=== PATIENT | male | born 1965 | race Caucasian/White ===

== ENCOUNTER 2017-11-26 12:11 | Emergency (ER) | payer OTHER ==
[~2017-11-26] VITALS: Ht 185.4 cm; Wt 81.6 kg
[2017-11-26 12:35] LABS: ABSOLUTE BASOPHIL COUNT 0.1 /CUMM (0.0-0.2); ABSOLUTE EOSINOPHIL COUNT 0 /CUMM (0.0-0.7); ABSOLUTE GRANULOCYTE CT 4.3 /CUMM (1.4-6.5); ABSOLUTE LYMPH COUNT 1.5 /CUMM (1.2-3.4); ABSOLUTE MONOCYTE COUNT 0.5 /CUMM (0.10-0.60); BASOPHIL % 0.9 % (0.0-2.0); EOSINOPHIL % 0.4 % (0-5); GRANULOCYTE % 67.3 % (42.2-75.2); MEAN CORPUSCULAR HGB 30.4 PG (27.0-31.0); MEAN CORPUSCULAR HGB CONC 33.8 G/DL (33.0-37.0); MEAN CORPUSCULAR VOLUME 89.9 FL (80.0-94.0); MEAN PLATELET VOLUME 7.5 FL (7.4-10.4); PLATELET COUNT 298 /CUMM (130-400); RBC DISTRIBUTION WIDTH 12.3 % (11.5-14.5); RED BLOOD CELL CT 5.12 /CUMM (4.70-6.10); WHITE BLOOD CELL COUNT 6.4 /CUMM (4.8-10.8)
--- NOTE | 2017-11-26 12:47 | ED GI/GU/ABDOMINAL COMPLAINT ---
History of Present Illness General Chief Complaint: Abdominal Pain/Flank Pain Stated Complaint: ABD PAIN Source: patient, family, old records Exam Limitations: no limitations Vital Signs & Intake/Output Vital Signs & Intake/Output Vital Signs Date Time Temp Pulse Resp B/P B/P Pulse O2 O2 Flow FiO2 Mean Ox Delivery Rate 11/26 1436 98.3 53 16 128/81 98 Room Air 11/26 1309 Room Air Room Air 11/26 1220 96.4 72 16 150/83 98 Room Air Allergies Coded Allergies: No Known Allergies (05/13/16) Reconcile Medications Dicyclomine HCl 10 MG CAPSULE 1 CAP PO TID PRN PAIN Oxycodone HCl/Acetaminophen (Percocet 5-325 MG Tablet) 5 MG-325 MG TABLET 1 TAB PO BID PAIN Triage Note: 51 Y/O MALE C/O CONSTANT MID ABDOMINAL PAIN SINCE 89; SUDDEN ONSET AND BECOMMING CONSTANT SINCE. STATES PAIN IS PERIUMBILICAL AND NON RADIATING. DENIES N/V/D. DENIES URINARY SYMPTOMS. DENIES FEVERS. BLOOD DRAWN IN TRIAGE. Triage Nurses Notes Reviewed? yes Onset: Abrupt Duration: hour(s): (4), constant Timing: recent history Quality/Severity: cramping, moderate Severity Numbers: 5 Location: periumbilical Radiation: epigastric, LUQ Activities at Onset: none No Modifying Factors: none Associated Symptoms: denies HPI: 51 Year old male with no medical history presents with family for evaluation and planning of umbilical abdominal pain radiating now to the epigastric and left upper quadrant since 9:30 this morning after having a bowel movement and eating breakfast. He denies any associated nausea vomiting black or bloody stools no diarrhea. Has not taken anything for symptoms no modifying factors no chest pain back pain. No history of abdominal surgeries in the past no modifying factors or associated symptoms otherwise. (Dawit Poon) Past History Travel History Traveled to [place] past 21 day No Medical History Any Pertinent Medical History? none Neurological: NONE EENT: NONE Cardiovascular: NONE Respiratory: NONE Gastrointestinal: NONE Hepatic: NONE Renal: NONE Musculoskeletal: NONE Psychiatric: NONE Endocrine: NONE Blood Disorders: NONE Surgical History Surgical History: non-contributory Psychosocial History What is your primary language Setswana Tobacco Use: Never used Family History Hx Contributory? No (Dawit Poon) Review of Systems Review of Systems Constitutional: Reports: see HPI. Comments Review of systems: See HPI, All other systems negative. Constitutional, no chills no fever HEENT: no sore throat no congestion Cardiovascular: No chest pain Skin: no rashes, no change in skin Respiratory: No dyspnea no cough no sputum GI: No nausea no vomiting, no diarrhea Muscle skeletal: No joint pain, no back pain Neurologic: , no headache Heme/endocrine: No bruising (Dawit Poon) Physical Exam Physical Exam General Appearance: well developed/nourished, no apparent distress, alert, awake , comfortable Gastrointestinal: soft Comments: Well-developed well-nourished person in no acute distress HEENT: Normal EENT exam; PERRL, EOMI, HEAD is atraumatic. moist mucous membranes. Neck: Supple, no lymphadenopathy, normal range of motion Back: Nontender, no CVA tenderness. Full range of motion Cardiovascular: Regular rate and rhythms no murmurs rubs Respiratory: No respiratory distress. Patient speaking in full complete sentences. Breath sounds clear to auscultation bilaterally: NO W/R/R Abdomen: Soft, nontender nondistended, no appreciable organomegaly. Normal bowel sounds. No rebound/guarding, No appreciable enlargement of the abdominal aorta, No ascites. Extremity: No edema, full range of motion of extremities Neuro: Alert oriented x3, motor sensory normal. There were no obvious focal neurologic abnormalities. Skin: No appreciable rash on exposed skin, skin is warm and dry. Psych: Mood and affect is normal, memory and judgment is normal. Core Measures ACS in differential dx? Yes Sepsis Present: No Sepsis Focused Exam Completed? No (Dawit Poon) Progress Differential Diagnosis: AMI, appendicitis, biliary colic, bowel obstruction, colon cancer, cholecystitis, diverticulitis, gastritis, hepatitis, hernia, ischemic bowel, inflamm bowel dis, pancreatitis, peptic ulcer, PUD/GERD Plan of Care: Orders Procedure Date/time Status Add-on Test (ER Only) 11/26 1335 Active EKG 11/26 1335 Active Add-on Test (ER Only) 11/26 1314 Active TROPONIN LEVEL 11/26 1225 Complete LIPASE 11/26 1225 Complete AMYLASE 11/26 1225 Complete URINALYSIS 11/26 1222 Complete LACTIC ACID 11/26 1222 Complete COMPREHENSIVE METABOLIC PANEL 11/26 1222 Complete CBC WITHOUT DIFFERENTIAL 11/26 1222 Complete Laboratory Tests 11/26/17 1522: Lactic Acid Cancelled 11/26/17 1410: Urine Color STRAW, Urine Clarity CLEAR, Urine pH 7.5, Ur Specific Heron 1.010, Urine Protein NEG, Urine Ketones NEG, Urine Nitrite NEG, Urine Bilirubin NEG, Urine Urobilinogen 0.2, Ur Leukocyte Esterase NEG, Ur Microscopic EXAM NOT REQUIRED, Urine Hemoglobin NEG, Urine Glucose NEG 11/26/17 1225: Anion Gap 11, Estimated GFR > 60, BUN/Creatinine Ratio 18.8, Glucose 97, Lactic Acid 1.3, Calcium 9.9, Total Bilirubin 0.5, AST 17, ALT 32, Alkaline Phosphatase 70, Troponin I < 0.01, Total Protein 6.9, Albumin 4.2, Globulin 2.7, Albumin/ Globulin Ratio 1.6, Amylase 77, Lipase 74, CBC w Diff NO MAN DIFF REQ, RBC 5.12, MCV 89.9, MCH 30.4, MCHC 33.8, RDW 12.3, MPV 7.5, Gran % 67.3, Lymphocytes % 24.2, Monocytes % 7.2, Eosinophils % 0.4, Basophils % 0.9, Absolute Granulocytes 4.3, Absolute Lymphocytes 1.5, Absolute Monocytes 0.5, Absolute Eosinophils 0, Absolute Basophils 0.1 Patient medicated with morphine 4 mg IV Toradol 30 mg IV CAT scan labs ordered 11/26/2017 1:36:45 PM Mo reports to feeling improved pending CAT scan labs case d/w dr castle regarding ct results, pt is passing gas, there has been no nausea, vomiting. pain has improved. he advised liquid diet, advance as tolerated Mo is tolerating by mouth challenge without nausea or worsening pain he reports to feeling improved with medication discussed with the patient family at length all of his lab results CAT scan findings, advised clear diet and advance as tolerated return precautions were discussed at length they feel comfortable with plan Diagnostic Imaging: Viewed by Me: CT Scan. Discussed w/RAD: CT Scan. Radiology Impression: PATIENT: MO TAM PRESENT AGE: 51 PATIENT ACCOUNT NO: [id number] : 67 LOCATION: [facility] ORDERING PHYSICIAN: Dawit GARCIA SERVICE DATE: 11/26/17 EXAM TYPE: CAT - CT ABD & PELVIS W IV CONTRAST EXAMINATION: CT ABDOMEN AND PELVIS WITH CONTRAST CLINICAL INFORMATION: Epigastric, left upper quadrant abdominal pain. COMPARISON: None TECHNIQUE: Multidetector volumetric imaging was performed of the abdomen and pelvis following IV administration of 95 mL of Optiray 320 intravenous contrast. Sagittal and coronal reformatted images were obtained on the technologist's workstation. DLP: 278.7 mGy-cm FINDINGS: LUNG BASES: The visualized lung bases are unremarkable. LIVER, GALLBLADDER, AND BILIARY TREE: Two subcentimeter subtle subdiaphragmatic hepatic hypodensities are noted within the left lobe of the liver (see the ridley images), too small for accurate characterization, likely represent incidental hepatic cysts. The gallbladder is unremarkable with no evidence of radiopaque gallstones, gallbladder wall thickening, or obvious pericholecystic inflammatory changes. PANCREAS: Unremarkable. Specifically, there is no intrapancreatic or peripancreatic inflammatory changes, pancreatic ductal dilatation, calcification or fluid collection identified. SPLEEN: Unremarkable. ADRENAL GLANDS: Unremarkable. KIDNEYS AND URETERS: The kidneys are normal in size, shape, and attenuation. No hydronephrosis, hydroureter, or calculi seen. No perinephric stranding. BLADDER: Unremarkable. GASTROINTESTINAL TRACT: Colonic diverticulosis related changes are noted within the sigmoid colon. There is no CT evidence of superimposed acute diverticulitis present. The appendix is visualized at right mid abdomen with its tip seen abutting the inferior tip of the right lobe of the liver, appear unremarkable. The proximal to mid small bowel loops are normal in caliber. Few of the [id number] small bowel loops show few air-fluid levels however, by measurement the caliber of the bowel loops are still within normal limits. This may represent a localized ileus or evolving partial, incomplete [id number] small bowel obstruction. There is no evidence of any definite transition zone visualized. ABDOMINAL WALL: No significant hernia is appreciated. LYMPH NODES: Normal. VASCULAR: Unremarkable. PELVIC VISCERA: There is no pelvic mass present. There is no free fluid and/or free air present. OSSEOUS STRUCTURES: Moderate-to- severe diffuse osteopenia is noted, somewhat unusual, given the patient's age and sex. No superimposed suspicious lytic or sclerotic abnormalities. IMPRESSION : 1. No CT evidence of any pancreatitis, cholelithiasis or diverticulitis or appendicitis present. 2. Few [id number] small bowel loops showing air-fluid level however, by measurement of the caliber still within normal limits. Differential includes localized ileus or evolving partial, incomplete or early complete small bowel obstruction. Follow-up imaging may be considered for further clarification if clinically appropriate. 3. Two tiny subcentimeter hepatic hypodensities are noted along the subdiaphragmatic surface, too small for accurate characterization, likely represent incidental cysts. 4. Significant osteopenia, somewhat unusual for the patient's age and sex, of uncertain etiology. DICTATED BY: Danni Herbert MD DATE/TIME DICTATED:11/26/171334 MEDICINE TECHNOLOGIST:ISIAH DATE/TIME TRANSCRIBED:11/26/171334 CONFIDENTIAL, DO NOT COPY WITHOUT APPROPRIATE AUTHORIZATION. <Electronically signed in Other Vendor System> SIGNED BY: Danni Herbert MD 11/26/17 1408 Initial ED EKG: normal intervals, normal p-waves, normal QRS complex, normal sinus rhythm (Dawit Poon) Departure Departure Time of Disposition: 8 Disposition: HOME OR SELF CARE Condition: Stable Clinical Impression Primary Impression: Abdominal pain Referrals: Dawit Walton MD (PCP/Family) Additional Instructions: Clear liquid diet and advance as tolerated. Follow-up with your primary care physician tomorrow. Bentyl for abdominal spasms. Percocet for breakthrough pain use caution as this is a narcotic and highly addictive. No driving or drinking alcohol while taking. Return anytime sooner if he had worsening of her pain despite medication or any other concerns. Departure Forms: Customer Survey General Discharge Information Prescriptions: Current Visit Scripts Oxycodone HCl/Acetaminophen (Percocet 5-325 MG Tablet) 1 TAB PO BID #8 TAB Dicyclomine HCl 1 CAP PO TID PRN PAIN #12 CAP (Dawit Poon) PA/AGRICULTURAL AGENT Co-Sign Statement Statement: ED Attending supervision documentation- I saw and evaluated the patient. I have also reviewed all the pertinent lab results and diagnostic results. I agree with the findings and the plan of care as documented in the PA's/AGRICULTURAL AGENT's documentation. x I have reviewed the ED Record and agree with the PA's/AGRICULTURAL AGENT's documentation. [] Additions or exceptions (if any) to the PAs/AGRICULTURAL AGENT's note and plan are summarized below: [] (Laura AVILA,Kleber)
--- NOTE | 2017-11-26 14:08 | CT SCAN REPORT ---
EXAMINATION: CT ABDOMEN AND PELVIS WITH CONTRAST CLINICAL INFORMATION: Epigastric, left upper quadrant abdominal pain. COMPARISON: None TECHNIQUE: Multidetector volumetric imaging was performed of the abdomen and pelvis following IV administration of 95 mL of Optiray 320 intravenous contrast. Sagittal and coronal reformatted images were obtained on the technologist's workstation. DLP: 278.7 mGy-cm FINDINGS: LUNG BASES: The visualized lung bases are unremarkable. LIVER, GALLBLADDER, AND BILIARY TREE: Two subcentimeter subtle subdiaphragmatic hepatic hypodensities are noted within the left lobe of the liver (see the ridley images), too small for accurate characterization, likely represent incidental hepatic cysts. The gallbladder is unremarkable with no evidence of radiopaque gallstones, gallbladder wall thickening, or obvious pericholecystic inflammatory changes. PANCREAS: Unremarkable. Specifically, there is no intrapancreatic or peripancreatic inflammatory changes, pancreatic ductal dilatation, calcification or fluid collection identified. SPLEEN: Unremarkable. ADRENAL GLANDS: Unremarkable. KIDNEYS AND URETERS: The kidneys are normal in size, shape, and attenuation. No hydronephrosis, hydroureter, or calculi seen. No perinephric stranding. BLADDER: Unremarkable. GASTROINTESTINAL TRACT: Colonic diverticulosis related changes are noted within the sigmoid colon. There is no CT evidence of superimposed acute diverticulitis present. The appendix is visualized at right mid abdomen with its tip seen abutting the inferior tip of the right lobe of the liver, appear unremarkable. The proximal to mid small bowel loops are normal in caliber. Few of the [id number]-tk-[id number] small bowel loops show few air-fluid levels however, by measurement the caliber of the bowel loops are still within normal limits. This may represent a localized ileus or evolving partial, incomplete [id number] small bowel obstruction. There is no evidence of any definite transition zone visualized. ABDOMINAL WALL: No significant hernia is appreciated. LYMPH NODES: Normal. VASCULAR: Unremarkable. PELVIC VISCERA: There is no pelvic mass present. There is no free fluid and/or free air present. OSSEOUS STRUCTURES: [id number]-[id number]-byphle diffuse osteopenia is noted, somewhat unusual, given the patient's age and sex. No superimposed suspicious lytic or sclerotic abnormalities. IMPRESSION: 1. No CT evidence of any pancreatitis, cholelithiasis or diverticulitis or appendicitis present. 2. Few mmv-ry-btaewj small bowel loops showing air-fluid level however, by measurement of the caliber still within normal limits. Differential includes localized ileus or evolving partial, incomplete or early complete small bowel obstruction. Follow-up imaging may be considered for further clarification if clinically appropriate. 3. Two tiny subcentimeter hepatic hypodensities are noted along the subdiaphragmatic surface, too small for accurate characterization, likely represent incidental cysts. 4. Significant osteopenia, somewhat unusual for the patient's age and sex, of uncertain etiology.
[2017-11-26 14:36] VITALS: BP 128/81
[2017-11-26] MEDS ORDERED: DICYCLOMINE HCL10 M1 PO (15:24)
[2017-11-26] MEDS ORDERED: PERCOCET 5-3251 EACH PO (15:24)
== END 2017-11-26 15:35 ==
LOC: ERH 12:11
PROVIDERS: Emergency Medicine
DX: R10.13 Epigastric pain (principal); R10.12 Left upper quadrant pain
CPT/HCPCS: 74177; 81003; 93005; 93010; 96361; 96374; 96375; 96376; J1885

== ENCOUNTER 2017-11-26 18:10 | Inpatient (IN) | payer OTHER ==
[~2017-11-26] VITALS: Ht 185.4 cm; Wt 74.6 kg
[~2017-11-26 18:10] MED LIST: DICYCLOMINE HCL10 M1 PO; PERCOCET 5-3251 EACH PO
--- NOTE | 2017-11-26 18:16 | ED GI/GU/ABDOMINAL COMPLAINT ---
History of Present Illness General Chief Complaint: Abdominal Pain/Flank Pain Stated Complaint: ABD PAIN WORSE; SEEN HERE EARLIER Source: patient, old records Exam Limitations: no limitations Vital Signs & Intake/Output Vital Signs & Intake/Output Vital Signs Date Time Temp Pulse Resp B/P B/P Pulse O2 O2 Flow FiO2 Mean Ox Delivery Rate 11/26 2108 99.0 11/26 2108 99.0 78 18 138/80 98 Room Air 11/26 1900 99.1 72 18 119/76 98 Room Air 11/26 1851 98 11/26 1813 98.1 82 26 174/112 98 Room Air Allergies Coded Allergies: No Known Allergies (05/13/16) Reconcile Medications Dicyclomine HCl 10 MG CAPSULE 1 CAP PO TID PRN PAIN Oxycodone HCl/Acetaminophen (Percocet 5-325 MG Tablet) 5 MG-325 MG TABLET 1 TAB PO BID PAIN Triage Note: PT DIRECTLY TO ROOM 9 AFTER BEING ASSISTED OUT OF VEHICLE C/C 04/10 ABD TIGHTNESS. DENIES N/V/D. WAS SEEN IN ER EARLIER TODAY DIAGNOSED WITH ?AIR IN ABD PER FAMILY. 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 Triage Nurses Notes Reviewed? yes Onset: Abrupt Duration: day(s): (1), constant, waxing and waning Timing: recent history Quality/Severity: aching, moderate, sharpness, severe, stabbing Severity Numbers: 8 Location: generalized abdomen Radiation: no radiation Activities at Onset: none Prior Abdominal Problems: none No Modifying Factors: none Associated Symptoms: NAUSEA HPI: 51-year-old male history of ibs seen earlier today for abdominal pain presents complaining of diffuse abdominal pain nausea after having soup with Percocet that he was prescribed. The pain began after eating eggs for breakfast around 9 :30. Mo had an unremarkable workup including CAT scan and labs earlier today. Symptoms were relieved with morphine he was tolerating by mouth prior to discharge earlier. After eating the soup he states he felt nauseous. No vomiting he states he has not been passing gas since being home (Dawit Poon) Past History Travel History Traveled to [place] past 21 day No Medical History Any Pertinent Medical History? none Neurological: NONE EENT: NONE Cardiovascular: NONE Respiratory: NONE Gastrointestinal: ibs Hepatic: NONE Renal: NONE Musculoskeletal: NONE Psychiatric: NONE Endocrine: NONE Blood Disorders: NONE Surgical History Surgical History: non-contributory Psychosocial History What is your primary language Tristanian Tobacco Use: Never used Family History Hx Contributory? No (Dawit Poon) Review of Systems Review of Systems Constitutional: Reports: see HPI. Comments Review of systems: See HPI, All other systems negative. Constitutional, no chills no fever, HEENT: no sore throat no congestion Cardiovascular: No chest pain Skin: no rashes, no change in skin Respiratory: No dyspnea no cough GI: No nausea no vomiting, no diarrhea, : No dysuria No hematuria, no frequency Muscle skeletal: No joint pain, no back pain Neurologic: , no headache Heme/endocrine: No bruising (Dawit Poon) Physical Exam Physical Exam General Appearance: well developed/nourished, alert, awake Gastrointestinal: soft Comments: Well-developed well-nourished person in no acute distress HEENT: Normal EENT exam; PERRL, EOMI, HEAD is atraumatic. moist mucous membranes. Neck: Supple, normal range of motion Back: Nontender, no CVA tenderness. Full range of motion Cardiovascular: tachycardic, Regular rhythm no murmur Respiratory:No respiratory distress. Patient speaking in full complete sentences. Breath sounds clear to auscultation bilaterally: NO W/R/R Abdomen: Soft, nontender nondistended, no appreciable organomegaly. hyperactive bowel sounds. No rebound/guarding, , No ascites. Extremity: No edema, full range of motion of extremities Neuro: Alert oriented x3, motor sensory normal,. There were no obvious focal neurologic abnormalities. Skin: No appreciable rash on exposed skin, skin is warm and dry. Psych: anxious, memory and judgment is normal. Core Measures ACS in differential dx? No Sepsis Present: No Sepsis Focused Exam Completed? No (Dawit Poon) Progress Differential Diagnosis: appendicitis, biliary colic, bowel obstruction, colon cancer, cholecystitis, diverticulitis, gastritis, hepatitis, hernia, inflamm bowel dis, pancreatitis, SBO, ileus Plan of Care: Orders Procedure Date/time Status Nothing by Mouth 11/27 B Active [id number] VIEW 11/27 0800 Active LACTIC ACID 11/27 0600 Active CBC WITHOUT DIFFERENTIAL 11/27 06 Active BASIC ELECTROLYTES PLUS BUN&CR 11/27 06 Active LACTIC ACID 11/26 2350 Active LACTIC ACID 11/26 2114 Complete Saline Lock 11/26 2049 Active Pathway - chart 11/26 2049 Active Patient Data 11/26 2049 Active Vital Signs 11/26 2049 Active Intake & Output 11/26 2049 Active Activity/Ambulation 11/26 2049 Active Code Status 11/26 2049 Active Admit to inpatient 11/26 2048 Active LIPASE 11/26 1814 Complete LACTIC ACID 11/26 1814 Complete COMPREHENSIVE METABOLIC PANEL 11/26 1814 Complete CBC WITHOUT DIFFERENTIAL 11/26 1814 Complete VTE Mechanical Prophylaxis 11/26 UNK Active Activity/Ambulation 11/26 UNK Active Current Medications Sig/Rivera Start time Last Medication Dose Stop Time Status Admin Heparin Sodium 5,000 UNIT Q8 11/26 2199 AC 11/26 (Porcine) 2207 Acetaminophen 1,000 MG Q6H 11/26 2099 AC 11/26 (Ofirmev) 11/27 1514 2109 N/A 1 UNIT (No Carrier) Ondansetron HCl 4 MG Q6P PRN 11/26 2099 AC (Zofran) Morphine Sulfate 2 MG Q4P PRN 11/26 2044 AC 11/26 (MORPHINE SULFATE) 214 Morphine Sulfate 4 MG Q4P PRN 11/26 2044 AC (MORPHINE SULFATE) Sodium Chloride 1,000 ML BOLUS 11/26 2044 AC (Normal Saline 0.9%) Ondansetron HCl 4 MG ONCE ONE 11/26 1829 CAN (Zofran) 11/26 183 Laboratory Tests 11/26/170: Lactic Acid 1.6 11/26/172052: Sodium Cancelled, Potassium Cancelled, Chloride Cancelled, Carbon Dioxide Cancelled, Anion Gap Cancelled, BUN Cancelled, Creatinine Cancelled, BUN/ Creatinine Ratio Cancelled 11/26/172049: Sodium Cancelled, Potassium Cancelled, Chloride Cancelled, Carbon Dioxide Cancelled, Anion Gap Cancelled, BUN Cancelled, Creatinine Cancelled, BUN/ Creatinine Ratio Cancelled 11/26/17 1822: Anion Gap 14, Estimated GFR > 60, BUN/Creatinine Ratio 18.6, Glucose 142 H, Lactic Acid 4.9 H, Calcium 9.6, Total Bilirubin 0.8, AST 20, ALT 25, Alkaline Phosphatase 71, Total Protein 6.6, Albumin 4.1, Globulin 2.5, Albumin/Globulin Ratio 1.6, Lipase 75, CBC w Diff NO MAN DIFF REQ, RBC 5.03, MCV 88.9, MCH 30.1, MCHC 33.9, RDW 12.2, MPV 7.6, Gran % 77.3 H, Lymphocytes % 16.1 L, Monocytes % 6.1, Eosinophils % 0.1, Basophils % 0.4, Absolute Granulocytes 9.8 H, Absolute Lymphocytes 2.0, Absolute Monocytes 0.8 H, Absolute Eosinophils 0, Absolute Basophils 0.1 Labs ordered old records reviewed patient acute morphine to Ativan 1 Zofran 4 IV fluids 11/26/2017 7:13:27 PM MO resting in nad at this time, improvement with dilaudid. pending xrays 11/26/2017 7:51:16 PM pending x-ray Mo continues to sleep resting in no acute distress he's had no vomiting here [address] Dougherty, will have surgical domonique demarco pt d/w surgical domonique brewer- will consult CT SCAN ABD PELVIS: MPRESSION: 1. No CT evidence of any pancreatitis, cholelithiasis or diverticulitis or appendicitis present. 2. Few [id number] small bowel loops showing air-fluid level however, by measurement of the caliber still within normal limits. Differential includes localized ileus or evolving partial, incomplete or early complete small bowel obstruction. Follow-up imaging may be considered for further clarification if clinically appropriate. 3. Two tiny subcentimeter hepatic hypodensities are noted along the subdiaphragmatic surface, too small for accurate characterization, likely represent incidental cysts. 4. Significant osteopenia, somewhat unusual for the patient's age and sex, of uncertain etiology. DICTATED BY: Danni Herbert MD DATE/TIME DICTATED:11/26/171334 BATCHMAKER:ISIAH DATE/TIME TRANSCRIBED:11/26/171334 CONFIDENTIAL, DO NOT COPY WITHOUT APPROPRIATE AUTHORIZATION. Diagnostic Imaging: Viewed by Me: Radiology Read. Discussed w/RAD: Radiology Read. Radiology Impression: PATIENT: MO TAM PRESENT AGE: 51 PATIENT ACCOUNT NO: [id number] : 67 LOCATION: [facility] ORDERING PHYSICIAN: Dawit GARCIA SERVICE DATE: 11/26/17 EXAM TYPE: RAD - [id number] VIEWS EXAMINATION: XR ABDOMEN MULTIPLE VIEWS CLINICAL INDICATION: Evaluation for obstruction. Abdominal pain COMPARISON: CT scan abdomen pelvis the same day TECHNIQUE: 2 views of the abdomen. FINDINGS: There is excreted contrast within the urinary bladder which is normal in appearance. There are gas-filled, nondilated loops of the small bowel and colon and stomach. No abnormal wall thickening. No free intra-abdominal air. No air-fluid level. The fat planes are preserved. The visualized bones are unremarkable. IMPRESSION: Gas-filled nondilated loops of bowel without x-ray evidence of obstruction. Clinical correlation is suggested. DICTATED BY: Di Camejo MD DATE/TIME DICTATED:11/26/171943 BATCHMAKER:ISIAH DATE/TIME TRANSCRIBED:1943 CONFIDENTIAL, DO NOT COPY WITHOUT APPROPRIATE AUTHORIZATION. < Electronically signed in Other Vendor System> SIGNED BY: Di Camejo MD 11/26/171950 Initial ED EKG: none (Dawit Poon) Departure Departure Time of Disposition: 2028 Disposition: STILL A PATIENT Condition: Stable Clinical Impression Primary Impression: Abdominal pain Secondary Impressions: Lactic acidosis Referrals: Dawit Walton MD (PCP/Family) Departure Forms: Customer Survey General Discharge Information Admission Note Spoke With: Khurram AVILA,Parvez Monreal (Dawit Poon) PA/[employer] Co-Sign Statement Statement: ED Attending supervision documentation- [x] I saw and evaluated the patient. I have also reviewed all the pertinent lab results and diagnostic results. I agree with the findings and the plan of care as documented in the PA's/[employer]'s documentation. 11/26/17, 21:01... pt with sbo, presently resting comfortably, merits admission for further care. [] I have reviewed the ED Record and agree with the PA's/[employer]'s documentation. [] Additions or exceptions (if any) to the PAs/[employer]'s note and plan are summarized below: [] (Yeimi AVILA,Ra Rosenbaum)
[2017-11-26 18:36] LABS: ABSOLUTE BASOPHIL COUNT 0.1 /CUMM (0.0-0.2); ABSOLUTE EOSINOPHIL COUNT 0 /CUMM (0.0-0.7); ABSOLUTE GRANULOCYTE CT 9.8 /CUMM (1.4-6.5); ABSOLUTE MONOCYTE COUNT 0.8 /CUMM (0.10-0.60); BASOPHIL % 0.4 % (0.0-2.0); EOSINOPHIL % 0.1 % (0-5); GRANULOCYTE % 77.3 % (42.2-75.2); HEMATOCRIT 44.7 % (42-52); MEAN CORPUSCULAR HGB 30.1 PG (27.0-31.0); MEAN CORPUSCULAR HGB CONC 33.9 G/DL (33.0-37.0); MEAN CORPUSCULAR VOLUME 88.9 FL (80.0-94.0); MEAN PLATELET VOLUME 7.6 FL (7.4-10.4); PLATELET COUNT 317 /CUMM (130-400); RBC DISTRIBUTION WIDTH 12.2 % (11.5-14.5); RED BLOOD CELL CT 5.03 /CUMM (4.70-6.10); WHITE BLOOD CELL COUNT 12.7 /CUMM (4.8-10.8)
--- NOTE | 2017-11-26 19:51 | RADIOLOGY REPORT ---
EXAMINATION: XR ABDOMEN MULTIPLE VIEWS CLINICAL INDICATION: Evaluation for obstruction. Abdominal pain COMPARISON: CT scan abdomen pelvis the same day TECHNIQUE: 2 views of the abdomen. FINDINGS: There is excreted contrast within the urinary bladder which is normal in appearance. There are gas-filled, nondilated loops of the small bowel and colon and stomach. No abnormal wall thickening. No free intra-abdominal air. No air-fluid level. The fat planes are preserved. The visualized bones are unremarkable. IMPRESSION: Gas-filled nondilated loops of bowel without x-ray evidence of obstruction. Clinical correlation is suggested.
--- NOTE | 2017-11-26 21:01 | Cons- General Surgery ---
Kirsten Martinez 11/26/172054: General Information and HPI Consulting Request Date of Consult: 11/26/17 Requested By: ER Reason for Consult: ABDOMINAL PAIN Source of Information: patient, family Exam Limitations: no limitations History of Present Illness: 51 Y/O HEALTHY MALE PRESENTS WITH ABDOMINAL PAIN THAT STARTED THIS MORNING. HE WOKE UP WITH DISCOMFORT AND NAUSEA WITH INTERMITTENT WAVE-LIKE PAIN. BM IN THE MORINING WAS NORMAL WITHOUT BLOOD, NO DIARRHEA. HIS PAIN WORSENED IN THE EARLY AFTERNOON AND HE WAS SEEN IN THE ER. CT SCAN OF THE ABDOMEN SHOWED MULTIPLE DILATED LOOPS OF BOWEL SUGGESTIVE OF AN ILEUS. LABS WERE NORMAL AT THE TIME AND HE WAS DISCHARGED TO HOME FEELING IMPROVED. HE TOOK A NAP AT HOME AND THE PAIN RETURNED. HE WAS CONCERNED AND CAME BACK TO THE ER WHERE LABS SHOWED INCREASE IN LACTIC ACID AND WBC FROM HIS BASELINE EARLIER. HE COMPLAINED OF WORSENING NAUSE WITHOUT VOMITING AND INTERMITTENT ABDOMINAL CRAMPING. HE DENIES FEVERS OR CHILLS , NO URINARY SYMPTOMS AND NO PRIOR SURGERIES. COLONOSCOPY 1 YEAR AGO WAS NORMAL Allergies/Medications Allergies: Coded Allergies: No Known Allergies (05/13/16) Home Med List: Dicyclomine HCl 10 MG CAPSULE 1 CAP PO TID PRN PAIN Oxycodone HCl/Acetaminophen (Percocet 5-325 MG Tablet) 5 MG-325 MG TABLET 1 TAB PO BID PAIN Current Medications: Current Medications Sig/Rivera Start time Last Medication Dose Route Stop Time Status Admin Acetaminophen 1,000 MG Q6H 11/26 2100 UNVr N/A 1 UNIT IV 11/27 1514 Famotidine 0 .STK-MED ONE 11/26 1836 DC IV Famotidine 20 MG ONCE ONE 11/26 1830 DC 11/26 IV 11/26 183 183 Heparin Sodium 5,000 UNIT Q8 11/26 2200 UNVr (Porcine) SC Hydromorphone HCl 0 .STK-MED ONE 11/26 1856 DC .ROUTE Hydromorphone HCl 1 MG ONCE ONE 11/26 1845 DC 11/26 IV 11/26 184 1850 Lorazepam 0 .STK-MED ONE 11/26 1826 DC .ROUTE Lorazepam 1 MG ONCE ONE 11/26 1815 DC 11/26 IV 11/26 181 182 Metoclopramide HCl 0 .STK-MED ONE 11/26 1836 DC .ROUTE Metoclopramide HCl 10 MG ONCE ONE 11/26 1830 DC 11/26 IV 11/26 1831 1832 Morphine Sulfate 2 MG Q4P PRN 11/26 2044 UNVr IV Morphine Sulfate 4 MG Q4P PRN 11/26 2044 UNVr IV Morphine Sulfate 0 .STK-MED ONE 11/26 1825 DC .ROUTE Morphine Sulfate 2 MG ONCE ONE 11/26 1815 DC 11/26 IV 11/26 1816 182 Ondansetron HCl 4 MG Q6P PRN 11/26 2100 UNVr IV Ondansetron HCl 4 MG ONCE ONE 11/26 1830 CAN IV 11/26 183 Sodium Chloride 1,000 ML BOLUS 11/26 2044 UNVr IV Sodium Chloride 1,000 ML BOLUS ONE 11/26 1900 DC 11/26 IV 11/26 195 191 Sodium Chloride 1,000 ML BOLUS ONE 11/26 181 DC 11/26 IV 11/26 Past History Medical History Neurological: NONE EENT: NONE Cardiovascular: NONE Respiratory: NONE Gastrointestinal: ibs Hepatic: NONE Renal: NONE Musculoskeletal: NONE Psychiatric: NONE Endocrine: NONE Blood Disorders: NONE Surgical History Pertinent Surgical History: non-contributory Review of Systems Review of Systems Constitutional: Denies: chills, fever, weakness. EENTM: Denies: no symptoms. Cardiovascular: Denies: chest pain, palpitations, syncope. Respiratory: Denies: cough, short of breath. GI: Reports: abdominal pain, bloating, distention, nausea. Denies: constipation, diarrhea, bloody stool, vomiting. Genitourinary: Denies: no symptoms. Musculoskeletal: Denies: no symptoms. Hematologic/Endocrine: Denies: no symptoms. Immunologic/Allergic: Denies: no symptoms. Exam & Diagnostic Data Vital Signs and I&O Vital Signs Date Time Temp Pulse Resp B/P B/P Pulse O2 O2 Flow FiO2 Mean Ox Delivery Rate 11/26 1899 99.1 72 18 119/76 98 Room Air 11/26 1851 98 11/26 181 98.1 82 26 174/112 98 Room Air IMPRESSION: 1. No CT evidence of any pancreatitis, cholelithiasis or diverticulitis or appendicitis present. 2. Few [id number] small bowel loops showing air-fluid level however, by measurement of the caliber still within normal limits. Differential includes localized ileus or evolving partial, incomplete or early complete small bowel obstruction. Follow-up imaging may be considered for further clarification if clinically appropriate. 3. Two tiny subcentimeter hepatic hypodensities are noted along the subdiaphragmatic surface, too small for accurate characterization, likely represent incidental cysts. 4. Significant osteopenia, somewhat unusual for the patient's age and sex, of uncertain etiology. Physical Exam: 51 Y/O MALE LYING IN BED ALERT AND ORIENTED ANSWERING QUESTIONS CHEST- CTA SYMMETRIC HEART- RRR WITHOUT MRG ABD -SOFT WITHOUT DISTENTION, GENERALIZED SORENESS WITHOUT GUARDING OR REBOUND, BS DIMINISHED BUT PRESENT BILATERAL LOWER EXTREMITIES -CALVES SOFT, DISTAL PULSES INTACT, NO EDEMA Assessment/Plan Assessment/Plan 51 Y/O MALE WITH ACUTE ABDOMINAL PAIN AND NAUSEA CT SUGGESTIVE OF ILEUS OR PARTIAL BOWEL OBSTRUCTION -CT REVIEWED BY DR ALEXANDER PLAN - ADMIT, BOWEL REST, IVF, NPO REPEAT AM LABS AND ABD FILM Consult Acknowledgment - Thank you for your consult request. Parvez Paulson MD 11/27/17 1057: Assessment/Plan Consult Acknowledgment - Thank you for your consult request. Attending MD Review Statement Attending Statement Attending MD Statement: discuss w/resident/PA/ENERGY SYSTEMS ENGINEER, reviewed images Attending Assessment/Plan: Patient presents with severe crampy periumbilical abdominal pain. He had normal bowel function up until this afternoon. Diagnosis is unclear. Given the severity of his pain he'll be admitted for IV fluid resuscitation and serial abdominal examinations. Repeat imaging (x-ray) will perform in the morning. Suspect lactic acidosis related to dehydration. No evidence for visceral vessel occlusive disease on IV contrast CT.
[2017-11-26 23:13] VITALS: BP 112/62
[2017-11-27 06:28] VITALS: BP 120/86
--- NOTE | 2017-11-27 07:40 | PN- General Surgery ---
See Addendum Subjective Subjective: PT IN BED STILL WITH ABD PAIN DISCRIBED TIGHTNESS AROUND UPPER ABDOMEN, 3/10 AFTER IV TYLENOL. DENIES FEVERS. VOIDING WITHOUT PAIN. NO FLATUS OR BM. AMBULATING TO BATHROOM. NO NAUSEA/VOMITING OVERNIGHT. AFTER I LEFT THE ROOM HE STARTED VOMITING Objective Vital Signs and I&Os Vital Signs Date Time Temp Pulse Resp B/P B/P Pulse O2 O2 Flow FiO2 Mean Ox Delivery Rate 11/28 627 98.7 74 20 120/86 98 Room Air 11/26 2313 98.2 65 20 112/62 99 Room Air 11/26 2109 99.0 11/26 210 99.0 78 18 138/80 98 Room Air 11/26 1900 99.1 72 18 119/76 98 Room Air 11/26 1851 98 11/26 1813 98.1 82 26 174/112 98 Room Air Intake & Output 11/27 0800 11/27 0000 11/26 1600 11/26 0800 11/26 0000 11/25 1600 Intake Total 3000 Output Total 450 Balance -450 3000 Intake, IV 3000 Output, Urine 450 Patient 184 lb Weight Weight Bed scale Measurement Method Physical Exam: GEN- NAD RESP-CLEAR CARDIAC-RRR ABD- NONDISTENDED, +BS, SOFT, TENDER IN LOWER ABDOMEN Assessment/Plan Assessment/Plan 51YO M WITH ABDOMINAL PAIN, NOW VOMITING. POSSIBLE ILEUS VS BOWEL OBSTRUCTION VS GASTROENTERITIS. ADD REGLAN ADD TORADOL, TRY TO LIMIT NARCOTICS AWAITING AM LABS AWAITING THIS MORNINGS ABD X-RAY CONT NPO AND IVF FOR HYDRATION HEPSQ FOR DVT PPX ENCOURAGE AMBULATION WILL DISCUSS WITH ATTENDING Core Measures Venous Thromboembolism VTE Risk Factors Age>40 No Mechanical VTE Prophylaxis d/t N/A MechProphylax Ordered No VTE Pharm Prophylaxis d/t NA PharmProphylax ordered
[2017-11-27 08:00] LABS: ABSOLUTE BASOPHIL COUNT 0 /CUMM (0.0-0.2); ABSOLUTE EOSINOPHIL COUNT 0 /CUMM (0.0-0.7); ABSOLUTE GRANULOCYTE CT 8.2 /CUMM (1.4-6.5); ABSOLUTE LYMPH COUNT 0.6 /CUMM (1.2-3.4); ABSOLUTE MONOCYTE COUNT 0.9 /CUMM (0.10-0.60); BASOPHIL % 0.2 % (0.0-2.0); EOSINOPHIL % 0.1 % (0-5); GRANULOCYTE % 84.8 % (42.2-75.2); HEMATOCRIT 43.1 % (42-52); MEAN CORPUSCULAR HGB 30.3 PG (27.0-31.0); MEAN PLATELET VOLUME 7.9 FL (7.4-10.4); PLATELET COUNT 234 /CUMM (130-400); RBC DISTRIBUTION WIDTH 12.4 % (11.5-14.5); RED BLOOD CELL CT 4.84 /CUMM (4.70-6.10); WHITE BLOOD CELL COUNT 9.7 /CUMM (4.8-10.8)
--- NOTE | 2017-11-27 10:08 | RADIOLOGY REPORT ---
EXAMINATION: XR ABDOMEN CLINICAL INDICATION: Abdominal pain. Question ileus or bowel obstruction. COMPARISON: CT of the abdomen and pelvis and plain films of the abdomen from 11/26/2017 TECHNIQUE: AP view of the abdomen. FINDINGS: In comparison to the studies of one day earlier, several air-filled loops of small bowel in the central abdomen have slightly increased in caliber, measuring up to 2.8 cm. There is a small amount of air and stool seen within the colon. On this supine study there is no definitive evidence of free air. No acute osseous abnormality. IMPRESSION: Increase in caliber of several central air-filled loops of small bowel, currently measuring up to 2.8 cm in diameter. This may represent an early small bowel obstruction.
--- NOTE | 2017-11-27 12:47 | RADIOLOGY REPORT ---
EXAMINATION: XR ABDOMEN CLINICAL INDICATION: Check for NG tube placement. COMPARISON: Abdominal radiograph from 9:20 AM the same day TECHNIQUE: AP view of the abdomen. FINDINGS: There has been interval placement of a feeding tube whose tip projects over the left upper quadrant of the abdomen, appearing to be within the stomach. The side port is present near the GE junction. Air-filled loops of slightly prominent small bowel remain visualized centrally within the abdomen. A small amount of air and stool scattered within the colon. No acute osseous abnormality. IMPRESSION: Interval placement of a nasogastric tube, whose tip projects over the stomach.
[2017-11-27 13:53] VITALS: BP 120/70
[2017-11-27 22:33] VITALS: BP 130/72
[2017-11-28 06:56] VITALS: BP 125/73
--- NOTE | 2017-11-28 07:31 | PN- General Surgery ---
Subjective Subjective: Continued pain overnight, mostly in upper abdomen. Persistent hiccups despite ng tube. Occasional nausea but pt states he feels it could be related to ng positioning. No flatus, no bm. Has been ambulating, but was lightheaded last night. No chest pain, shortness of breath and difficulty breathing. Objective Vital Signs and I&Os Vital Signs Date Time Temp Pulse Resp B/P B/P Pulse O2 O2 Flow FiO2 Mean Ox Delivery Rate 11/28 0656 98.5 78 20 125/73 97 Room Air 11/27 2233 98.2 85 20 130/72 96 Room Air 11/27 1353 97.5 70 20 120/70 96 Room Air Intake & Output 11/28 0800 11/28 0000 11/27 1600 11/27 0811/27 0000 11/26 1600 Intake Total 600 588 235 4197 Output Total 1125 775 600 900 Balance -525 -375 275 -900 3000 Intake, IV 600 662 111 9134 Intake, Oral 0 Intake, Other 75 Output, 375 Gastric Drainage Output, Urine 750 775 600 900 Patient 184 lb 184 lb Weight Weight Bed scale Bed scale Measurement Method Physical Exam: Gen: AAO x3, no acute distress Cards: RRR, s1s2 Pulm: CTA, non-labored Abd: Mild/moderate distension, guarding, bs ausculted Extremities: Neurovascularly intact, calves soft and non-tender bilaterally Assessment/Plan Assessment/Plan 51 year old male, hospital day 2 with sbo vs ileus, ng tube in place, see I&O for output -Continue npo, ngt, iv fluid -Follow up lytes -Consider elap today, will d/w Dr. Paulson regarding abdominal mv prior to OR decision being made Core Measures Venous Thromboembolism VTE Risk Factors Age>40 No Mechanical VTE Prophylaxis d/t N/A MechProphylax Ordered No VTE Pharm Prophylaxis d/t NA PharmProphylax ordered
--- NOTE | 2017-11-28 08:29 | RADIOLOGY REPORT ---
EXAMINATION: XR ABDOMEN MULTIPLE VIEWS CLINICAL INDICATION: Abdominal pain. Question small bowel obstruction. COMPARISON: Abdominal radiograph 11/18/1917. TECHNIQUE: 2 views of the abdomen. FINDINGS: There are multiple stacked air-filled loops of small bowel within the midabdomen. A small volume of intraluminal gas is visualized within the right colon. The distal colon is collapsed. Findings remain essentially unchanged when compared to the most recent prior examination from 11/27/2017. No evidence of free intraperitoneal air. Solid organ contours are normal. No acute osseous finding. The position of the enteric tube is unchanged with its tip and distal sidehole located within the left upper quadrant. IMPRESSION: Stable examination. Multiple air-filled loops of small bowel within the midabdomen that may either represent a manifestation of ileus or partial obstruction.
[2017-11-28 13:42] VITALS: BP 142/77
[2017-11-28 20:41] VITALS: BP 137/77
--- NOTE | 2017-11-28 23:36 | Operative Report ---
Operative/Inv Procedure Report Surgery Date: 11/28/17 Name of Procedure: Laparoscopic lysis of adhesions and Meckel's diverticulectomy Pre-Operative Diagnosis: Intestinal obstruction Post-Operative Diagnosis: Same Estimated Blood Loss: scant Surgeon/Mobile Development Manager: Kuhrram AVILA,Parvez Monreal/Jane GARCIA Anesthesia: general endotracheal tube Specimens: Meckel's diverticulum Operative Indication: 51-year-old male with intestinal obstruction without prior surgery presents for emergent exploration Operative/Procedure Note Note: After consent patient is brought to the operating room and laid supine. General anesthesia was obtained his abdomen was prepped and draped. Skin above the umbilicus was after local anesthesia a curvilinear incision made sharply. We dissected through subcutaneous tissues tissues bluntly and identified the fascia. It was grasped with Shun's and a fasciotomy created sharply. The peritoneum was entered sharply and a blunt Bernal port was placed. Pneumoperitoneum was achieved. 2, 5 mm ports were placed in the suprapubic region and left lower quadrant, after local anesthesia was instilled and under direct vision the camera. Patient placed in Trendelenburg and rotated towards the left. The abdomen was explored. There were numerous dilated loops of small bowel cascading through the abdominal cavity. Visualization was difficult. In the left lower quadrant there were decompressed loops with signs of early ischemia. We identified a Meckel's diverticulum with an adhesion to the tip of it. The adhesion was lysed. After doing so there is immediate transit of gas and succus entericus through the previously nondilated loop. There is also reperfusion with viability of the bowel. It was impossible to run the small bowel completely, however I was very confident that we had identified the source of obstruction. I elected to perform Meckel's diverticulectomy to prevent recurrence. This was done with that Endo KILEY 60 stapler and a transverse oriented fashion as to not compromise the lumen of the bowel. The Meckel's diverticulum was then placed in Endo Catch bag and cinched up. The peritoneal cavity was suction irrigated normal saline. At the conclusion of the case we could see gas filling the cecum. Ports then removed and Meckel's delivered and passed off the field. The fascia was closed 0 Vicryl suture. Skin incisions closed with 4-0 Vicryl. Steri-Strips and sterile dressing applied. Sponge and needle counts are correct CC: Isabelle AVILA,Dawit Pierre
[2017-11-29 01:45] VITALS: BP 122/74
[2017-11-29 07:30] VITALS: BP 135/83
--- NOTE | 2017-11-29 08:06 | PN- General Surgery ---
Subjective Subjective: Pt states he is comfortable. No issues over night. States he passed some gas with smears of liquid stool. c/o sore throat Objective Vital Signs and I&Os Vital Signs Date Time Temp Pulse Resp B/P B/P Pulse O2 O2 Flow FiO2 Mean Ox Delivery Rate 11/29 0730 97.9 78 18 135/83 96 Room Air 11/29 0145 98.5 76 18 122/74 95 Room Air 11/28 2041 98.6 81 18 137/77 97 11/28 1342 98.2 83 20 142/77 97 Room Air Intake & Output 11/29 0811/29 0000 11/28 1600 11/28 0800 11/28 0000 11/27 1600 Intake Total 4013 836 3822 600 400 875 Output Total 700 588 672 6457 775 600 Balance 300 325 850 -525 -375 275 Intake, IV 2737 432 0901 600 400 800 Intake, Oral 0 0 Intake, Other 75 Number 1 0 Bowel Movements Output, 250 200 375 Gastric Drainage Output, Urine 700 300 250 750 775 600 Patient 179 lb Weight Alert, oriented, no distress, looks comfortable Lungs clear bilat Heart regular Abdomen softly distended,tympanitic to percussion, appropriately tender. Port sites with bandaids are clean, dry. NGT output brown, small output, 100 cc over night. Voiding spontaneously. Extremities without edema. Assessment/Plan Assessment/Plan 51 y o healthy male , underwent lap.JOSEFINA/ Meckel's diverticulectomy POD#1 Stable hemodynamics.Making adequate urine. NGT output minimal, abdomen fairly distended and tympanitic. Would continue current regimen with NGT decompression till more bowel fxn. Pain meds as needed. Increase ambulation Will order labs for today Will add Chloraseptic for sore throat Cont. heparin sc for chemical DVT prophylaxis. Core Measures Venous Thromboembolism VTE Risk Factors Age>40 No Mechanical VTE Prophylaxis d/t N/A MechProphylax Ordered No VTE Pharm Prophylaxis d/t NA PharmProphylax ordered
[2017-11-29 11:00] LABS: ABSOLUTE BASOPHIL COUNT 0 /CUMM (0.0-0.2); ABSOLUTE EOSINOPHIL COUNT 0 /CUMM (0.0-0.7); ABSOLUTE GRANULOCYTE CT 3.3 /CUMM (1.4-6.5); ABSOLUTE LYMPH COUNT 0.3 /CUMM (1.2-3.4); ABSOLUTE MONOCYTE COUNT 0.8 /CUMM (0.10-0.60); BASOPHIL % 0 % (0.0-2.0); EOSINOPHIL % 0 % (0-5); GRANULOCYTE % 76.3 % (42.2-75.2); HEMATOCRIT 41.3 % (42-52); MEAN CORPUSCULAR HGB 30.1 PG (27.0-31.0); MEAN CORPUSCULAR HGB CONC 33.6 G/DL (33.0-37.0); MEAN CORPUSCULAR VOLUME 89.7 FL (80.0-94.0); MEAN PLATELET VOLUME 7.9 FL (7.4-10.4); PLATELET COUNT 255 /CUMM (130-400); RBC DISTRIBUTION WIDTH 12.6 % (11.5-14.5); RED BLOOD CELL CT 4.61 /CUMM (4.70-6.10)
[2017-11-29 11:06] LABS: WHITE BLOOD CELL COUNT 4.4 /CUMM (4.8-10.8)
--- NOTE | 2017-11-29 12:36 | PN- General Surgery ---
Surgical Brief Attending Note Brief Attending Note: as per PA note. more bowel function throughout the day. d/c ng-done. start clears tomorrow.
[2017-11-29 14:02] VITALS: BP 137/90
[2017-11-29 22:26] VITALS: BP 136/70
[2017-11-30 06:16] VITALS: BP 138/84
--- NOTE | 2017-11-30 07:33 | PN- General Surgery ---
See Addendum Subjective Subjective: Reports improving watery diarrhea. Ongoing "bloating", but passing some flatus. No nausea. Taking sips. Ambulating without difficulty. No dizziness. No shortness of breath. No chest pains. Voiding without difficulty Objective Vital Signs and I&Os Vital Signs Date Time Temp Pulse Resp B/P B/P Pulse O2 O2 Flow FiO2 Mean Ox Delivery Rate 12/01 615 98.6 75 21 138/84 95 11/29 2226 98.8 77 19 136/70 96 Room Air 11/29 1402 98.0 85 18 137/90 97 Room Air Intake & Output 11/30 0800 11/30 0000 11/29 1600 11/29 0800 11/29 0000 11/28 1600 Intake Total 1002 532 1987 2597 781 7552 Output Total 300 700 550 450 Balance 1000 500 800 300 325 850 Intake, IV 9905 156 9790 8653 058 1575 Intake, Oral 100 0 Number 5 1 0 Bowel Movements Output, 250 200 Gastric Drainage Output, Urine 300 700 300 250 Patient 178 lb 179 lb Weight Physical Exam: General - alert & oriented x 3. comfortable. no acute distress. Lungs - clear bilaterally. no w/r/r. Cardiac - s1s2. reg. Abdomen - softly distended. dressings c/d/i. bowel sounds appreciated. arlyn- incisional tenderness. Extremities - warm bilaterally. no c/c/e. calves soft and nontender b/l. athrombics active. Current Medications: Current Medications Sig/Rivera Start time Last Medication Dose Route Stop Time Status Admin Acetaminophen 1,000 MG Q6P PRN 11/28 0130 AC 11/28 N/A 1 UNIT IV 1530 Heparin Sodium 5,000 UNIT Q8 11/26 2200 AC 11/30 (Porcine) SC 0527 Ketorolac 15 MG .STK-MED ONE 11/29 1515 DC Tromethamine IM 11/29 1516 Ketorolac 15 MG Q8P PRN 11/27 0745 11/29 Tromethamine IV 2336 Melatonin 5 MG ONCE ONE 11/30 0200 DC 11/30 PO 11/30 0201 0215 Morphine Sulfate 2 MG Q2 HRS NEEDED PRN 11/29 0015 AC IV Morphine Sulfate 4 MG Q3P PRN 11/28 2345 AC IV Ondansetron HCl 4 MG Q6P PRN 11/26 2100 AC 11/28 IV 0035 Pantoprazole Sodium 40 MG .STK-MED ONE 11/29 1644 DC IV 11/29 1645 Pantoprazole Sodium 40 MG DAILY 11/29 0015 AC 11/29 IV 0814 Phenol 2 SPRAY Q2P PRN 11/29 0815 AC EXT Potassium Chloride 20 MEQ Q8H 11/28 0745 r 11/30 Dextrose/Sodium 1,000 ML IV 0417 Chloride Results Last 48 Hours of Labs: Laboratory Tests 11/29 11/29 1023 1007 Chemistry Sodium (137 - 145 mmol/L) 139 Potassium (3.5 - 5.1 mmol/L) 4.3 Chloride (98 - 107 mmol/L) 101 Carbon Dioxide (22 - 30 mmol/L) 29 Anion Gap (5 - 16) 9 BUN (9 - 20 mg/dL) 14 Creatinine (0.7 - 1.2 mg/dL) 0.7 Estimated GFR (>60 ml/min) > 60 BUN/Creatinine Ratio (7 - 25 %) 20.0 Hematology CBC w Diff NO MAN DIFF REQ WBC (4.8 - 10.8 /CUMM) 4.4 L RBC (4.70 - 6.10 /CUMM) 4.61 L Hgb (14.0 - 18.0 G/DL) 13.9 L Hct (42 - 52 %) 41.3 L MCV (80.0 - 94.0 FL) 89.7 MCH (27.0 - 31.0 PG) 30.1 MCHC (33.0 - 37.0 G/DL) 33.6 RDW (11.5 - 14.5 %) 12.6 Plt Count (130 - 400 /CUMM) 255 MPV (7.4 - 10.4 FL) 7.9 Gran % (42.2 - 75.2 %) 76.3 H Lymphocytes % (20.5 - 51.1 %) 6.1 L Monocytes % (1.7 - 9.3 %) 17.6 H Eosinophils % (0 - 5 %) 0 Basophils % (0.0 - 2.0 %) 0 Absolute Granulocytes (1.4 - 6.5 /CUMM) 3.3 Absolute Lymphocytes (1.2 - 3.4 /CUMM) 0.3 L Absolute Monocytes (0.10 - 0.60 /CUMM) 0.8 H Absolute Eosinophils (0.0 - 0.7 /CUMM) 0 Absolute Basophils (0.0 - 0.2 /CUMM) 0 Urines Urinalysis LIGHT H Urine Color (YEL,AMB,STR) YEL Urine Clarity (CLEAR) CLEAR Urine pH (5.0 - 8.0) 6.5 Ur Specific [place] (1.001 - 1.035) 1.020 Urine Protein (NEG,<30 MG/DL) 30 H Urine Ketones (NEG) NEG Urine Nitrite (NEG) NEG Urine Bilirubin (NEG) NEG Urine Urobilinogen (0.1 - 1.0 EU/dl) 0.2 Ur Leukocyte Esterase (NEG) NEG Ur Microscopic SEDIMENT EXAMINED Urine RBC (0 - 5 /HPF) 5-10 H Urine WBC (0 - 2 /HPF) 1-3 H Ur Epithelial Cells (NONE,FEW) FEW Urine Bacteria (NEG/NONE) MANY H Urine Mucus (FEW,NONE) MOD H Urine Hemoglobin (NEG) TRACE-INTACT H Urine Glucose (N MG/DL) 500 H Assessment/Plan Assessment/Plan This 51 year old male POD#2 s/p lap laura, Meckel's diverticulectomy clears today. decrease iv fluids continue oob/ambulation hep sc - dvt ppx f/u labs pain control as ordered will d/w Core Measures Venous Thromboembolism VTE Risk Factors Age>40 No Mechanical VTE Prophylaxis d/t N/A MechProphylax Ordered No VTE Pharm Prophylaxis d/t NA PharmProphylax ordered
[2017-11-30 09:49] LABS: ABSOLUTE BASOPHIL COUNT 0 /CUMM (0.0-0.2); ABSOLUTE EOSINOPHIL COUNT 0 /CUMM (0.0-0.7); ABSOLUTE GRANULOCYTE CT 2.8 /CUMM (1.4-6.5); ABSOLUTE MONOCYTE COUNT 0.8 /CUMM (0.10-0.60); BASOPHIL % 0.3 % (0.0-2.0); MEAN PLATELET VOLUME 8.1 FL (7.4-10.4)
[2017-11-30 09:58] LABS: EOSINOPHIL % 0.6 % (0-5); GRANULOCYTE % 60.4 % (42.2-75.2); MEAN CORPUSCULAR HGB 30.6 PG (27.0-31.0); MEAN CORPUSCULAR HGB CONC 34.3 G/DL (33.0-37.0); MEAN CORPUSCULAR VOLUME 89.2 FL (80.0-94.0); PLATELET COUNT 229 /CUMM (130-400); RBC DISTRIBUTION WIDTH 12.5 % (11.5-14.5); RED BLOOD CELL CT 4.05 /CUMM (4.70-6.10); WHITE BLOOD CELL COUNT 4.6 /CUMM (4.8-10.8)
[2017-11-30 10:06] LABS: HEMATOCRIT 36.2 % (42-52)
[2017-11-30 14:49] VITALS: BP 134/76
[2017-11-30 21:47] VITALS: BP 120/70
[2017-12-01 06:28] VITALS: BP 136/80
--- NOTE | 2017-12-01 07:58 | PN- General Surgery ---
See Addendum Subjective Subjective: POD#3 S/P LAP JOSEFINA 1L OF BILIOUS VOMIT THIS AM "I FEEL MUCH BETTER AFTER I VOMITED" DENIES CP, SOB HAS FLATUS, NO BM Objective Vital Signs and I&Os Vital Signs Date Time Temp Pulse Resp B/P B/P Pulse O2 O2 Flow FiO2 Mean Ox Delivery Rate / 0628 99.5 73 20 136/80 96 Room Air 11/30 2147 99.7 66 18 120/70 95 11/30 1449 98.2 74 20 134/76 95 Room Air Intake & Output 06/ 0800 / 0000 11/30 1600 11/30 0800 11/30 0000 11/29 1600 Intake Total 180 378 2271 500 1100 Output Total 300 Balance 512 526 8256 500 800 Intake, IV 838 264 5119 500 1000 Intake, Oral 360 100 Number 0 5 Bowel Movements Output, Urine 300 Patient 178 lb 178 lb Weight Weight Bed scale Measurement Method Physical Exam: CV: RRR LUNGS: CLEAR ABD: DISTENDED HYPOACTIVE BS NO GUARDING TO PALP EXT: WARM, DISTAL CMS INTACT Assessment/Plan Assessment/Plan ABDOMINAL DISTENTION WITH LARGE BILIOUS VOMIT PLAN STAT AM LABS NPO ANTIEMETICS INCREASE IVF OOB/AMBULATE MV ABD XRAY Core Measures Venous Thromboembolism VTE Risk Factors Age>40 No Mechanical VTE Prophylaxis d/t N/A MechProphylax Ordered No VTE Pharm Prophylaxis d/t NA PharmProphylax ordered
[2017-12-01 08:14] LABS: ABSOLUTE BASOPHIL COUNT 0 /CUMM (0.0-0.2); ABSOLUTE EOSINOPHIL COUNT 0 /CUMM (0.0-0.7); ABSOLUTE GRANULOCYTE CT 5.3 /CUMM (1.4-6.5); ABSOLUTE LYMPH COUNT 0.7 /CUMM (1.2-3.4); ABSOLUTE MONOCYTE COUNT 0.9 /CUMM (0.10-0.60); BASOPHIL % 0.1 % (0.0-2.0); EOSINOPHIL % 0.5 % (0-5); GRANULOCYTE % 76.4 % (42.2-75.2); HEMATOCRIT 39.2 % (42-52); MEAN CORPUSCULAR HGB 30.4 PG (27.0-31.0); MEAN CORPUSCULAR HGB CONC 34.6 G/DL (33.0-37.0); MEAN CORPUSCULAR VOLUME 87.8 FL (80.0-94.0); MEAN PLATELET VOLUME 7.4 FL (7.4-10.4); PLATELET COUNT 268 /CUMM (130-400); RBC DISTRIBUTION WIDTH 12.3 % (11.5-14.5); RED BLOOD CELL CT 4.47 /CUMM (4.70-6.10); WHITE BLOOD CELL COUNT 6.9 /CUMM (4.8-10.8)
--- NOTE | 2017-12-01 11:33 | RADIOLOGY REPORT ---
EXAMINATION: XR ABDOMEN MULTIPLE VIEWS CLINICAL INDICATION: Postoperative ileus versus small bowel obstruction. Vomiting. COMPARISON: X-ray from 11/28/2017. TECHNIQUE: 2 views of the abdomen. FINDINGS: There is distention of small bowel loops diffusely, as noted on recent prior imaging. Areas present within scattered large bowel loops as well. There are scattered differential air-fluid levels within the small bowel loops. No free air is visible. The lung bases are clear. No acute osseous abnormality is seen. IMPRESSION: Gaseous distention of small bowel loops with scattered differential air-fluid levels. Presence of air in the right colon as well which suggests a partial small bowel obstruction.
[2017-12-01 14:40] VITALS: BP 122/70
[2017-12-01 22:20] VITALS: BP 145/86
--- NOTE | 2017-12-02 05:57 | RADIOLOGY REPORT ---
EXAMINATION: XR PORTABLE CHEST CLINICAL INFORMATION: Verify nasogastric tube COMPARISON: None TECHNIQUE: Portable frontal view of the chest was obtained. FINDINGS: Nasogastric tube tip lies in the stomach. The lungs are clear with no focal consolidation. No evidence of pneumothorax, pulmonary edema, or pleural effusions. The cardiomediastinal silhouette is unremarkable. No acute osseous findings. IMPRESSION: Nasogastric tube tip in the stomach. No acute cardiopulmonary findings.
[2017-12-02 06:54] VITALS: BP 142/90
--- NOTE | 2017-12-02 09:50 | PN- General Surgery ---
See Addendum Subjective Subjective: PATIENT WITH NAUSEA AND VOMITING OVERNIGHT -NGT PLACED COMPLAINS OF GENERALIZED ABDOMINAL SORENESS AND BLOATING Objective Vital Signs and I&Os Vital Signs Date Time Temp Pulse Resp B/P B/P Pulse O2 O2 Flow FiO2 Mean Ox Delivery Rate 12/02 0654 98.2 68 18 142/90 97 Room Air 12/01 2220 99.1 70 20 145/86 97 Room Air 12/01 1440 98.8 62 20 122/70 96 Room Air Intake & Output 12/02 1600 12/02 0800 12/02 0000 12/01 1600 12/01 0800 12/01 0000 Intake Total 0984 542 4956 520 150 Output Total 1000 1000 Balance 40 375 1000 -480 150 Intake, IV 9948 859 3369 400 150 Intake, Oral 0 0 0 120 Number 0 0 0 Bowel Movements Output, 1000 1000 Emesis Patient 178 lb Weight Weight Bed scale Measurement Method VSS AFEBRILE, UNCOMFORTABLE HEART-RRR WITHOUT MRG CHEST-CTA ABD -ROUNDED BLOATED WITH GENERALIZED ABDOMINAL PAIN 1000CC EMESIS PRIOR TO NGT PLACED, FAINT BS -HAD WATERY BM YESTERDAY BILATERAL LOWER EXTREMITIES SOFT Admission Lab Results I reviewed the following labs: Laboratory Tests 12/02 0720 Chemistry Sodium (137 - 145 mmol/L) 137 Potassium (3.5 - 5.1 mmol/L) 4.0 Chloride (98 - 107 mmol/L) 100 Carbon Dioxide (22 - 30 mmol/L) 29 Anion Gap (5 - 16) 7 BUN (9 - 20 mg/dL) 10 Creatinine (0.7 - 1.2 mg/dL) 0.7 Estimated GFR (>60 ml/min) > 60 BUN/Creatinine Ratio (7 - 25 %) 14.3 Assessment/Plan Assessment/Plan 11/26 SBO LAP WITH LYSIS OF ADHESIONS AND MECKELS CONT WITH NGT SERIAL ABD EXAMS AMBULATION LABS PENDING FOR AM Core Measures Venous Thromboembolism VTE Risk Factors Age>40 No Mechanical VTE Prophylaxis d/t N/A MechProphylax Ordered No VTE Pharm Prophylaxis d/t NA PharmProphylax ordered
--- NOTE | 2017-12-02 12:00 | RADIOLOGY REPORT ---
EXAMINATION: XR ABDOMEN WITH PA CHEST CLINICAL INDICATION: Vomiting. Ileus versus small bowel obstruction. COMPARISON: X-ray from 12/01/2017. TECHNIQUE: Supine and upright views of the abdomen. FINDINGS: An NG tube is in place with the distal tip in the stomach. Degree of distention of small bowel loops is without significant change. Scattered nondifferential air-fluid levels are again visible throughout the small bowel loops. Amount of air in the large bowel is decreased. There is air within the stomach. A trace left pleural effusion is visible. The remaining imaged portions of the lungs are clear. No acute osseous abnormality is seen. IMPRESSION: Stable degree of small bowel distention with scattered air-fluid levels, indicative for a small bowel obstruction. Decreased amount of air in the large bowel compared to recent prior imaging.
[2017-12-02 14:49] VITALS: BP 150/80
[2017-12-02 22:00] VITALS: BP 148/90
--- NOTE | 2017-12-03 07:30 | PN- General Surgery ---
See Addendum Subjective Subjective: Pt reporting one formed bm followed by two smaller/looser bms overnight. No abdominal pain. No nausea. Has ng in place, disconnects it himself. Denies chest pain, shortness of breath and difficulty breathing. Has been ambulatory. Objective Vital Signs and I&Os Vital Signs Date Time Temp Pulse Resp B/P B/P Pulse O2 O2 Flow FiO2 Mean Ox Delivery Rate 12/03 0748 98.2 74 20 140/86 95 /03 2200 98.2 66 18 148/90 97 Room Air 12/02 1449 98.0 71 20 150/80 98 Room Air Intake & Output / 0800 06/04 0000 06/03 1600 /03 0800 06/ 0000 06/02 1600 Intake Total 1000 8806 670 6784 Output Total 690 1000 Balance -690 1000 40 375 1000 Intake, IV 1000 1497 599 3442 Intake, Oral 0 0 0 0 Number 1 0 0 0 0 Bowel Movements Output, 1000 Emesis Output, 240 Gastric Drainage Output, Urine 450 Physical Exam: General: Alert and oriented x3, no acute distress Cardiac: RRR, s1s2 Pulm: CTA bilaterally Abd: Softly distended, non-tender Extremities: Neurovascularly intact, calves soft/non -tender bilaterally Assessment/Plan Assessment/Plan 51 year old male, POD 5 s/p laparoscopy, resection meckles diverticulum, laura, has had multiple episodes of large quantity emesis necessitating replacement of ng tube, now moving bowels -Continue ngt -Continue npo -Continue current medical regimen Plan is to watch patient today without any aggressive intervention unless warrented by change in clinical state Discussed with Dr. Paulson Core Measures Venous Thromboembolism VTE Risk Factors Age>40 No Mechanical VTE Prophylaxis d/t N/A MechProphylax Ordered No VTE Pharm Prophylaxis d/t NA PharmProphylax ordered
[2017-12-03 07:48] VITALS: BP 140/86
[2017-12-03 08:38] LABS: ABSOLUTE BASOPHIL COUNT 0 /CUMM (0.0-0.2); ABSOLUTE EOSINOPHIL COUNT 0.1 /CUMM (0.0-0.7); BASOPHIL % 0.3 % (0.0-2.0); GRANULOCYTE % 73.3 % (42.2-75.2); HEMATOCRIT 38.3 % (42-52); MEAN CORPUSCULAR HGB 30.5 PG (27.0-31.0); MEAN CORPUSCULAR HGB CONC 34.7 G/DL (33.0-37.0); MEAN CORPUSCULAR VOLUME 88.1 FL (80.0-94.0); MEAN PLATELET VOLUME 7.7 FL (7.4-10.4); PLATELET COUNT 296 /CUMM (130-400); RBC DISTRIBUTION WIDTH 12.6 % (11.5-14.5); RED BLOOD CELL CT 4.34 /CUMM (4.70-6.10); WHITE BLOOD CELL COUNT 8.2 /CUMM (4.8-10.8)
[2017-12-03 14:44] VITALS: BP 124/80
[2017-12-03 23:11] VITALS: BP 140/82
[2017-12-04 06:57] VITALS: BP 122/78
--- NOTE | 2017-12-04 07:55 | PN- General Surgery ---
See Addendum Subjective Subjective: Patient doing fairly well this am. Ambulating, voiding and pain well controlled with current analgesia. No n/v around the ngt. Reports flatus and bm. Abdomen overall feels improved and less distended. No other issues or complaints. Objective Vital Signs and I&Os Vital Signs Date Time Temp Pulse Resp B/P B/P Pulse O2 O2 Flow FiO2 Mean Ox Delivery Rate 12/04 0657 98.8 71 18 122/78 95 12/03 2311 98.2 74 18 140/82 96 Room Air 12/03 1444 98.4 73 18 124/80 97 Room Air Intake & Output 12/04 0800 12/04 0000 12/03 1600 12/03 0800 12/03 0000 12/02 1600 Intake Total 1410 783 129 3289 Output Total 550 800 600 150 690 Balance 860 75 150 -150 -690 1000 Intake, IV 1050 415 051 8553 Intake, Oral 360 0 0 0 Number 0 1 0 Bowel Movements Output, 250 200 200 150 240 Gastric Drainage Output, Urine 300 600 400 450 Physical Exam: General: A, A, NAD HEENT: NCAT, ngt in place draining dark bilious fluid, no nasal irritation Abdomen: Softly distended, tympanitic, appropriately ttp, incisions intact with steri strips in place, no surrounding edema, erythema or induration Extremities: No clubbing, cyanosis or edema Current Medications: Current Medications Sig/Rivera Start time Last Medication Dose Route Stop Time Status Admin Acetaminophen 1,000 MG Q6P PRN 11/28 0130 AC 12/04 N/A 1 UNIT IV 0126 Benzocaine/Menthol 1 KVNG Q4 HRS NEEDED PRN 12/02 1345 AC 12/02 PO 1412 Heparin Sodium 5,000 UNIT Q8 11/26 2200 AC 12/03 (Porcine) SC 1527 Ketorolac 30 MG .STK-MED ONE 12/03 0813 DC Tromethamine IM 12/03 0814 Ketorolac 15 MG Q8P PRN 11/27 0745 AC 12/03 Tromethamine IV 0820 Morphine Sulfate 2 MG Q2 HRS NEEDED PRN 11/29 0015 DC IV Morphine Sulfate 4 MG Q3P PRN 11/28 2345 AC IV Ondansetron HCl 4 MG Q6P PRN 11/26 2100 AC 12/01 IV 0430 Pantoprazole Sodium 40 MG DAILY 11/29 0015 12/04 IV 0736 Phenol 2 SPRAY Q2P PRN 11/29 0815 12/03 EXT 2133 Potassium Chloride 20 MEQ Q20H 11/30 0800 12/04 Dextrose/Sodium 1,000 ML IV 0532 Chloride Results Last 48 Hours of Labs: Laboratory Tests 12/03 0731 Chemistry Sodium (137 - 145 mmol/L) 136 L Potassium (3.5 - 5.1 mmol/L) 4.0 Chloride (98 - 107 mmol/L) 100 Carbon Dioxide (22 - 30 mmol/L) 28 Anion Gap (5 - 16) 8 BUN (9 - 20 mg/dL) 8 L Creatinine (0.7 - 1.2 mg/dL) 0.7 Estimated GFR (>60 ml/min) > 60 BUN/Creatinine Ratio (7 - 25 %) 11.4 Hematology CBC w Diff NO MAN DIFF REQ WBC (4.8 - 10.8 /CUMM) 8.2 RBC (4.70 - 6.10 /CUMM) 4.34 L Hgb (14.0 - 18.0 G/DL) 13.3 L Hct (42 - 52 %) 38.3 L MCV (80.0 - 94.0 FL) 88.1 MCH (27.0 - 31.0 PG) 30.5 MCHC (33.0 - 37.0 G/DL) 34.7 RDW (11.5 - 14.5 %) 12.6 Plt Count (130 - 400 /CUMM) 296 MPV (7.4 - 10.4 FL) 7.7 Gran % (42.2 - 75.2 %) 73.3 Lymphocytes % (20.5 - 51.1 %) 12.7 L Monocytes % (1.7 - 9.3 %) 12.7 H Eosinophils % (0 - 5 %) 1.0 Basophils % (0.0 - 2.0 %) 0.3 Absolute Granulocytes (1.4 - 6.5 /CUMM) 6.0 Absolute Lymphocytes (1.2 - 3.4 /CUMM) 1.0 L Absolute Monocytes (0.10 - 0.60 /CUMM) 1.0 H Absolute Eosinophils (0.0 - 0.7 /CUMM) 0.1 Absolute Basophils (0.0 - 0.2 /CUMM) 0 Recent Imaging Studies: AXR 12/04/17: Pending Assessment/Plan Assessment/Plan This is a 51 yo male who is POD#8 s/p Laparoscopic lysis of adhesions and Meckel 's diverticulectomy postoperative course complicated by ileus. Amb/IS Pain Control PRN Analgesia GI/DVT Px F/U labs and AXR Continue NGT to clws, monitor quality and quantity of output Will d/w Dr. Paulson Core Measures Venous Thromboembolism VTE Risk Factors Age>40 No Mechanical VTE Prophylaxis d/t N/A MechProphylax Ordered No VTE Pharm Prophylaxis d/t NA PharmProphylax ordered
--- NOTE | 2017-12-04 10:13 | RADIOLOGY REPORT ---
EXAMINATION: XR ABDOMEN MULTIPLE VIEWS CLINICAL INDICATION: Postoperative ileus versus small bowel obstruction. Distention and vomiting. COMPARISON: Abdominal x-ray 12/02/2017. TECHNIQUE: Supine and erect views of the abdomen were obtained. FINDINGS: There is a nasogastric tube in position which appears similar compared to the prior study. The distal tip and sidehole within the stomach. There is mild distention of multiple loops of small bowel, similar compared to prior imaging. The fluid level is decreased compared to the prior study. There is no free intra-abdominal air. There are no abnormal calcifications. There are no acute osseous findings. The partially visualized lung bases are unremarkable. IMPRESSION: 1. There are mildly prominent loops of small bowel, but there has been interval decrease in fluid levels. 2. There is no free intra-abdominal air. 3. The nasogastric tube is unchanged in position.
[2017-12-04 14:42] VITALS: BP 122/70
[2017-12-04 22:03] VITALS: BP 120/72
[2017-12-05 06:43] VITALS: BP 124/80
--- NOTE | 2017-12-05 07:15 | PN- General Surgery ---
Subjective Subjective: overall feeling better, ambulating in [place], less bloated today, denies abd pain, passing more gas, feels more able to take deep breaths, concerned for ?need for tpn Objective Vital Signs and I&Os Vital Signs Date Time Temp Pulse Resp B/P B/P Pulse O2 O2 Flow FiO2 Mean Ox Delivery Rate 12/05 0643 98.4 75 20 124/80 96 Room Air 12/05 0029 4.0 12/04 2203 99.2 72 20 120/72 97 Room Air 12/04 1442 98.2 83 18 122/70 99 Room Air 12/04 0800 Room Air Intake & Output 12/05 0812/05 0000 12/04 1600 12/04 0800 12/04 0000 12/03 1600 Intake Total 7596 618 5394 1410 875 750 Output Total 900 1050 150 550 800 600 Balance 100 -155 850 860 75 150 Intake, IV 7706 715 4923 1050 875 750 Intake, Oral 0 0 0 360 0 0 Number 1 0 Bowel Movements Output, 100 150 150 250 200 200 Gastric Drainage Output, Urine 800 900 300 600 400 Physical Exam: gen- nad card- s1s2 rrr pulm- ctab abd- distended, soft, nt, incisions dressed- cdi, +bs ext- calves soft nt Results Last 48 Hours of Labs: Laboratory Tests 12/04 08 Chemistry Sodium (137 - 145 mmol/L) 139 Potassium (3.5 - 5.1 mmol/L) 4.2 Chloride (98 - 107 mmol/L) 100 Carbon Dioxide (22 - 30 mmol/L) 31 H Anion Gap (5 - 16) 8 BUN (9 - 20 mg/dL) 7 L Creatinine (0.7 - 1.2 mg/dL) 0.8 Estimated GFR (>60 ml/min) > 60 BUN/Creatinine Ratio (7 - 25 %) 8.8 Assessment/Plan Assessment/Plan A- POD 7 sp ex lap/meckels resection for sbo, with continued ileus, though with mild improvement today. P- check AXR- ?dc ngt later if improved lytes pending cont npo, ngt, ivf, iv meds hold off on tpn for now d/w Dr. Paulson Core Measures Venous Thromboembolism VTE Risk Factors Age>40 No Mechanical VTE Prophylaxis d/t N/A MechProphylax Ordered No VTE Pharm Prophylaxis d/t NA PharmProphylax ordered
--- NOTE | 2017-12-05 09:18 | RADIOLOGY REPORT ---
EXAMINATION: ABDOMEN 2 VIEWS CLINICAL INFORMATION: Abdominal distention. COMPARISON: 12/04/2017. TECHNIQUE: Supine and upright views of the abdomen are provided. FINDINGS: An enteric tube is in place. The tip overlies the left upper quadrant, likely within the stomach. There are a few air-fluid levels present within moderately dilated loops of small bowel. There is no appendicolith. The visualized lung bases are clear. The osseous structures are stable. IMPRESSION: Enteric tube in place. Few air-fluid levels within moderately dilated loops of small bowel, similar to the prior exam. Consider ileus or partial small bowel obstruction.
--- NOTE | 2017-12-05 12:24 | PN- General Surgery ---
Surgical Brief Attending Note Brief Attending Note: Patient with persistent ileus. Bowel function continues but still distended and xray not improved. Plan CT abd/pelvis with oral contrast through ng to eval infectious/obstructive complication. PICC line for TPN.
[2017-12-05 14:52] VITALS: BP 126/84
--- NOTE | 2017-12-05 15:39 | RADIOLOGY REPORT ---
EXAMINATION: CHEST 1 VIEW CLINICAL INFORMATION: Right PICC line placement. COMPARISON: 12/02/2017. TECHNIQUE: An AP view of the chest is provided. FINDINGS: The cardiac silhouette is not enlarged. A right-sided PICC line has been placed. The tip overlies the distal SVC. An enteric tube is in place. The tip overlies the left upper quadrant, likely within the stomach. The mediastinal and hilar contours are unremarkable. There are neither pleural effusions nor pneumothoraces. There are no consolidations. The osseous structures are unremarkable. IMPRESSION: No evidence for acute disease. Right PICC line and enteric tube in place.
--- NOTE | 2017-12-05 18:46 | CT SCAN REPORT ---
EXAMINATION: CT ABDOMEN AND PELVIS WITH CONTRAST CLINICAL INFORMATION: Ileus. Abdominal distention. Recent laparoscopic surgery for adhesions and Meckel's diverticulum resection COMPARISON: CT scan abdomen pelvis 11/26/2017. Multiple prior plain film studies of the abdomen. The most recent Abdomen 12/05/2017 TECHNIQUE: Multidetector volumetric imaging was performed of the abdomen and pelvis following IV administration of 94 mL of Optiray 320 intravenous contrast. Sagittal and coronal reformatted images were obtained on the technologist's workstation. Oral contrast was given. DLP: 308.54 mGy-cm FINDINGS: LUNG BASES: The visualized lung bases are unremarkable. LIVER, GALLBLADDER, AND BILIARY TREE: The liver is normal in size, shape, and attenuation. No focal hepatic lesion or biliary ductal dilatation is present. The gallbladder is unremarkable with no evidence of radiopaque gallstones, gallbladder wall thickening, or obvious pericholecystic inflammatory changes. PANCREAS: Unremarkable. SPLEEN: Unremarkable. ADRENAL GLANDS: Unremarkable. KIDNEYS AND URETERS: The kidneys are normal in size, shape, and attenuation. No hydronephrosis, hydroureter, or calculi seen. No perinephric stranding. BLADDER: Unremarkable. GASTROINTESTINAL TRACT: Patient underwent laparoscopic surgery with history of resection of adhesions and a Meckel's in the right upper quadrant. There is a surgical suture line in this area adjacent to small bowel loops. In this area there is a transition point between the dilated proximal small bowel and the nondilated distal small bowel. There are air-fluid levels in the distended small bowel loops containing some oral contrast. None of the oral contrast has gone past this transition point. There are decompressed distal small bowel containing air as well as decompressed large bowel containing air and stool. There is no evidence for ischemia with no bowel wall thickening or air in the bowel wall. There is a small amount of fluid in the cul-de-sac which could be related to recent surgery but there is no free air in the mesentery. There is diverticulosis of the colon but no diverticulitis. The appendix is normal. Nasogastric tube in stomach. MESENTERY: Small amount of fluid in the cul-de-sac. There is no free air. No inflammation. No mesenteric twist. No mesenteric mass. No significant lymphadenopathy of the mesentery. ABDOMINAL WALL: There is edema at the midline abdomen and suprapubic area with small air droplets in the subcutaneous fat over the pelvis and left groin. Air droplets at the umbilicus subcutaneous fat. This is consistent with history of recent laparoscopic surgery. There is a small amount of fluid, in the subcutaneous tissue along the left flank as well. No abscess. LYMPH NODES: Normal. VASCULAR: Unremarkable. PELVIC VISCERA: Prostate measures 5 cm transverse. OSSEOUS STRUCTURES: Unremarkable. IMPRESSION: 1. Small bowel obstruction/ileus with transition point in right upper quadrant. There is a surgical suture line associated with small bowel in the right upper quadrant at the transition point. No bowel wall thickening or edema. 2. Small amount of fluid in the cul-de-sac. No inflammation or free air the mesentery. This critical result was discussed with on 12/05/2017, 6:30 PM and it was ascertained that the content and urgency of the report was understood at the time of direct communication.
[2017-12-05 23:20] VITALS: BP 130/79
[2017-12-06 06:00] LABS: ABSOLUTE BASOPHIL COUNT 0 /CUMM (0.0-0.2); ABSOLUTE EOSINOPHIL COUNT 0 /CUMM (0.0-0.7); ABSOLUTE GRANULOCYTE CT 18.1 /CUMM (1.4-6.5); ABSOLUTE LYMPH COUNT 0.2 /CUMM (1.2-3.4); ABSOLUTE MONOCYTE COUNT 0.5 /CUMM (0.10-0.60); BASOPHIL % 0 % (0.0-2.0); EOSINOPHIL % 0.2 % (0-5); GRANULOCYTE % 95.9 % (42.2-75.2); HEMATOCRIT 40.8 % (42-52); MEAN CORPUSCULAR VOLUME 88.1 FL (80.0-94.0); MEAN PLATELET VOLUME 6.8 FL (7.4-10.4); PLATELET COUNT 313 /CUMM (130-400); RBC DISTRIBUTION WIDTH 12.5 % (11.5-14.5); RED BLOOD CELL CT 4.63 /CUMM (4.70-6.10)
[2017-12-06 06:05] LABS: WHITE BLOOD CELL COUNT 18.9 /CUMM (4.8-10.8)
[2017-12-06 06:40] VITALS: BP 108/67
--- NOTE | 2017-12-06 07:58 | PN- General Surgery ---
See Addendum Subjective Subjective: Patient reports pain is well controlled. He reports discomfort from his PICC line and NGT. He reports multiple episodes of diarrhea last night into this morning. He denies nausea or vomiting and reports improved abdominal distenstion. He reports ambualting in the halls frequently last night. CT scan yesterday revealed small bowel obstruction/ileus with transition point in right upper quadrant. Objective Vital Signs and I&Os Vital Signs Date Time Temp Pulse Resp B/P B/P Pulse O2 O2 Flow FiO2 Mean Ox Delivery Rate 12/06 0640 99.2 90 18 108/67 94 Room Air 12/05 2320 97.9 80 20 130/79 97 Room Air 12/05 1452 98.3 77 20 126/84 100 Room Air Intake & Output 12/06 1600 12/06 0800 12/06 0000 12/05 1600 12/05 0800 12/05 0000 Intake Total 1416.8 0 1225 1000 895 Output Total 475 824 4244 Balance 1416.8 0 325 100 -155 Intake, IV 5302 595 3171 895 Intake, Lipid 83.2 Intake, Oral 0 0 0 0 Intake, Other 600 Intake, 333.6 TPN/PPN Number 2 1 Bowel Movements Output, 50 100 150 Gastric Drainage Output, Urine 850 800 900 Patient 171 lb 179 lb Weight Weight Bed scale Measurement Method Physical Exam: Gen - nad HEENT - ngt in place to suction draining clear material Cardiac - S1S2 noted Lungs - CTAB Abd - soft, midly distended, bowel sounds present, incisions with steris in place, no signs of infection, nontender to palpation, no rebound or guarding noted Ext - no edema or calf tenderness Current Medications: Current Medications Sig/Rivera Start time Last Medication Dose Route Stop Time Status Admin Acetaminophen 1,000 MG Q6P PRN 11/28 0130 AC 12/05 N/A 1 UNIT IV 0029 Benzocaine/Menthol 1 KVNG Q4 HRS NEEDED PRN 12/02 1345 AC 12/05 PO 2019 Fat Emulsion 350 ML Q24H 12/06 1900 AC Intravenous IV 12/07 185 Fat Emulsion 250 ML Q24H 12/05 1900 AC 12/05 Intravenous IV 12/06 1852000 Heparin Sodium 5,000 UNIT Q8 11/26 2200 AC 12/03 (Porcine) SC 1527 Ketorolac 15 MG Q8P PRN 11/27 0745 12/03 Tromethamine IV 0820 Ondansetron HCl 4 MG Q6P PRN 11/26 2100 AC 12/06 IV 0244 Pantoprazole Sodium 40 MG DAILY 11/29 0015 12/06 IV 0800 Patient Medication 1 ED ONE ONE 12/05 1100 DC 12/05 Teaching ED 12/05 1101 1500 Phenol 2 SPRAY Q2P PRN 11/29 0815 12/04 EXT 2019 Potassium Chloride 20 MEQ Q20H 11/30 0800 12/06 Dextrose/Sodium 1,000 ML IV 0411 Chloride Total Parenteral 1 UNIT Q24H 12/06 1900 Nutrition IV 12/07 185 Total Parenteral 1 UNIT Q24H 12/05 1900 12/05 Nutrition IV 12/06 1852001 Results Last 48 Hours of Labs: Laboratory Tests 12/06 12/05 12/04 0545 0920 0826 Chemistry Sodium (137 - 145 mmol/L) 138 140 139 Potassium (3.5 - 5.1 mmol/L) 4.6 4.6 4.2 Chloride (98 - 107 mmol/L) 99 104 100 Carbon Dioxide (22 - 30 mmol/L) 27 25 31 H Anion Gap (5 - 16) 12 11 8 BUN (9 - 20 mg/dL) 11 9 7 L Creatinine (0.7 - 1.2 mg/dL) 0.7 0.7 0.8 Estimated GFR (>60 ml/min) > 60 > 60 > 60 BUN/Creatinine Ratio (7 - 25 %) 15.7 12.9 8.8 Glucose (65 - 99 mg/dL) 116 H Calcium (8.4 - 10.2 mg/dL) 9.2 Phosphorus (2.5 - 4.5 mg/dL) 3.3 Magnesium (1.6 - 2.3 mg/dL) 1.9 Total Bilirubin (0.2 - 1.3 mg/dL) 0.7 AST (17 - 59 U/L) 30 ALT (21 - 72 U/L) 73 H Alkaline Phosphatase (< 127 U/L) 62 Albumin (3.5 - 5.0 g/dL) 3.4 L Prealbumin (17.6 - 36.0 mg/dL) 24.1 Triglycerides (<150 mg/dL) 118 Cholesterol (< 200 MG/DL) 106 Hematology CBC w Diff MAN DIFF ORDERED WBC (4.8 - 10.8 /CUMM) 18.9 H RBC (4.70 - 6.10 /CUMM) 4.63 L Hgb (14.0 - 18.0 G/DL) 13.9 L Hct (42 - 52 %) 40.8 L MCV (80.0 - 94.0 FL) 88.1 MCH (27.0 - 31.0 PG) 30.0 MCHC (33.0 - 37.0 G/DL) 34.0 RDW (11.5 - 14.5 %) 12.5 Plt Count (130 - 400 /CUMM) 313 MPV (7.4 - 10.4 FL) 6.8 L Gran % (42.2 - 75.2 %) 95.9 H Lymphocytes % (20.5 - 51.1 %) 1.2 L Monocytes % (1.7 - 9.3 %) 2.7 Eosinophils % (0 - 5 %) 0.2 Basophils % (0.0 - 2.0 %) 0 Absolute Granulocytes (1.4 - 6.5 /CUMM) 18.1 H Segmented Neutrophils (42.2 - 75.2 %) 86 H Band Neutrophils (0.0 - 5.0 %) 7 H Absolute Lymphocytes (1.2 - 3.4 /CUMM) 0.2 L Lymphocytes (20.5 - 51.1 %) 1 L Monocytes (1.7 - 9.3 %) 6 Absolute Monocytes (0.10 - 0.60 /CUMM) 0.5 Absolute Eosinophils (0.0 - 0.7 /CUMM) 0 Absolute Basophils (0.0 - 0.2 /CUMM) 0 Platelet Estimate (ADEQUATE) ADEQUATE Polychromasia 1+ Poikilocytosis 1+ Ovalocytes 1+ Other Body Source Fld Total RBCs Counted (%) 100 Recent Imaging Studies: On 12/05/17, CT A/P w/ oral contrast revealed small bowel obstruction/ileus with transition point in right upper quadrant. There is a surgical suture line associated with small bowel in the right upper quadrant at the transition point. No bowel wall thickening or edema. Small amount of fluid in the cul-de-sac. No inflammation or free air the mesentery. Assessment/Plan Assessment/Plan 51 M POD 8 s/p ex lap/meckels resection for sbo on TPN for ileus, improving with return of bowel function TPN ordered Keep npo, decrease IVF rate IV analgesics/antiemetics prn ? clamp NGT DVT ppx on board Encourage ambulation, IS Will d/w Dr. Paulson Core Measures Venous Thromboembolism VTE Risk Factors Age>40 No Mechanical VTE Prophylaxis d/t N/A MechProphylax Ordered No VTE Pharm Prophylaxis d/t NA PharmProphylax ordered
[2017-12-06 14:27] VITALS: BP 102/70
[2017-12-06 23:03] VITALS: BP 111/64; BP 120/70
[2017-12-07 06:05] LABS: ABSOLUTE BASOPHIL COUNT 0 /CUMM (0.0-0.2); ABSOLUTE EOSINOPHIL COUNT 0.1 /CUMM (0.0-0.7); ABSOLUTE MONOCYTE COUNT 0.9 /CUMM (0.10-0.60)
[2017-12-07 06:10] LABS: HEMATOCRIT 39.7 % (42-52); MEAN CORPUSCULAR HGB 30.1 PG (27.0-31.0); RBC DISTRIBUTION WIDTH 12.9 % (11.5-14.5); RED BLOOD CELL CT 4.46 /CUMM (4.70-6.10); WHITE BLOOD CELL COUNT 9.4 /CUMM (4.8-10.8)
[2017-12-07 06:11] LABS: ABSOLUTE LYMPH COUNT 1.1 /CUMM (1.2-3.4); BASOPHIL % 0.1 % (0.0-2.0); EOSINOPHIL % 0.9 % (0-5); GRANULOCYTE % 77.7 % (42.2-75.2); MEAN CORPUSCULAR HGB CONC 33.8 G/DL (33.0-37.0); MEAN PLATELET VOLUME 6.8 FL (7.4-10.4); PLATELET COUNT 329 /CUMM (130-400)
[2017-12-07 06:12] LABS: ABSOLUTE GRANULOCYTE CT 7.3 /CUMM (1.4-6.5)
[2017-12-07 06:53] VITALS: BP 119/71
--- NOTE | 2017-12-07 08:04 | PN- General Surgery ---
See Addendum Subjective Subjective: Feels well. States diarrhea from one day ago resolving. Feels less distended, passing flatus. PICC site with less discomfort. Tolerating NGT, monitoring output, feels there is very little and has been tolerating time with it clamped while ambulating. Denies chest pain, shortness of breath and difficulty breathing. Feels he has more energy. Has had no nausea. Objective Vital Signs and I&Os Vital Signs Date Time Temp Pulse Resp B/P B/P Pulse O2 O2 Flow FiO2 Mean Ox Delivery Rate 12/07 0653 98.4 70 20 119/71 97 Room Air 12/06 1427 98.0 68 20 102/70 98 Room Air Intake & Output 12/07 1600 12/07 0800 12/07 0000 12/06 1600 12/06 0800 12/06 0000 Intake Total 736.8 160 786.8 1416.8 0 Output Total 500 300 100 Balance 236.8 -140 686.8 1416.8 0 Intake, IV 320 060 808 3550 Intake, Lipid 83.2 83.2 83.2 Intake, Oral 0 0 0 0 0 Intake, Other 50 Intake, 333.6 333.6 333.6 TPN/PPN Number 1 2 1 Bowel Movements Output, 0 100 Gastric Drainage Output, Urine 500 300 Patient 168 lb 171 lb Weight Weight Bed scale Bed scale Measurement Method Physical Exam: General: Alert and oriented x3, no acute distress Cardiac: RRR, s1s2 Pulm: CTA bilaterally Abd: Softly distended, mild. +BS, no guarding or reported tenderness on exam, ng output less than 200 in greater than 24 hours, non-bilious Extremities: Moves all extremities, distal sensation grossly intact, Bilateral calves soft and non-tender Assessment/Plan Assessment/Plan This is a 51 year old male, POD 9 s/p exploratory laparoscopy with resection of meckles diverticulum. Post op course complicated by ileus/sbo likely related to edema at meckle's resection site. Currently receiving tpn. Clinical course appears to be improving. -Clamp ngt today, likely dc if tolerated -No diet advance today, continue tpn -OOB, ambulation encouraged Discussed poc with Dr. Paulson Core Measures Venous Thromboembolism VTE Risk Factors Age>40 No Mechanical VTE Prophylaxis d/t N/A MechProphylax Ordered No VTE Pharm Prophylaxis d/t NA PharmProphylax ordered
[2017-12-07 13:50] VITALS: BP 116/75
[2017-12-07 21:35] VITALS: BP 119/76
[2017-12-08 07:00] VITALS: BP 105/62
--- NOTE | 2017-12-08 07:57 | PN- Student ---
See Addendum Dennis Guillermo 12/08/17 0743: Subjective Subjective: Patient denies abdominal pain, nausea or vomiting and is tolerating the removal of the NG tube. Patient has had flatus, but has not had a bowel movement. patient reports regular ambulation. paitient denies chest pain, shortness of breath, and leg pain. Objective Objective: Vitals: temp: 97.8 Pulse: 65 Respiratory rate: 16 BP: 119/76 Pulse Ox: 98% on room air Physical exam: General: No acute distress. no fever or chills. alert and oriented to time and place Cardio: S1 and S2 heard Lungs: Clear to ascultation bilaterally Abdomen: No bowel sounds heard on auscultation. belly was soft and nontender to palpation. Surgical sites were clean and free of drainage. Extremities: Calves were soft bilaterally. radial and tibialis posterior pulses were intact. Results Results: Laboratory Tests 12/08/17 0600: Sodium Pending, Potassium Pending, Chloride Pending, Carbon Dioxide Pending, Anion Gap Pending, BUN Pending, Creatinine Pending, BUN/Creatinine Ratio Pending , Phosphorus Pending, Magnesium Pending 12/07/17 0545: Anion Gap 10, Estimated GFR > 60, BUN/Creatinine Ratio 15.7, Phosphorus 3.5, Magnesium 2.1, CBC w Diff NO MAN DIFF REQ, RBC 4.46 L, MCV 89.0, MCH 30.1, MCHC 33.8, RDW 12.9, MPV 6.8 L, Gran % 77.7 H, Lymphocytes % 12.1 L, Monocytes % 9.2, Eosinophils % 0.9, Basophils % 0.1, Absolute Granulocytes 7.3 H, Absolute Lymphocytes 1.1 L, Absolute Monocytes 0.9 H, Absolute Eosinophils 0.1, Absolute Basophils 0 12/06/17 0545: Anion Gap 12, Estimated GFR > 60, BUN/Creatinine Ratio 15.7, Glucose 116 H, Calcium 9.2, Phosphorus 3.3, Magnesium 1.9, Total Bilirubin 0.7, AST 30, ALT 73 H, Alkaline Phosphatase 62, Albumin 3.4 L, Prealbumin 24.1, Triglycerides 118, Cholesterol 106, CBC w Diff MAN DIFF ORDERED, RBC 4.63 L, MCV 88.1, MCH 30.0, MCHC 34.0, RDW 12.5, MPV 6.8 L, Gran % 95.9 H, Lymphocytes % 1.2 L, Monocytes % 2.7, Eosinophils % 0.2, Basophils % 0, Absolute Granulocytes 18.1 H, Segmented Neutrophils 86 H, Band Neutrophils 7 H, Absolute Lymphocytes 0.2 L, Lymphocytes 1 L, Monocytes 6, Absolute Monocytes 0.5, Absolute Eosinophils 0, Absolute Basophils 0, Platelet Estimate ADEQUATE, Polychromasia 1+, Poikilocytosis 1+, Ovalocytes 1+, Fld Total RBCs Counted 100 12/05/17 0920: Anion Gap 11, Estimated GFR > 60, BUN/Creatinine Ratio 12.9 Assessment/Plan Assessment: Patient is a 51 year old male with a small bowel obstruction and post op day 10 for a lap laura and meckels resection. Plan: Consider advancing diet and dc'ing tpn based on result of abdominal Xray Continue ambulation and DVT prophylaxis Continue pain control plan and nasea meds PRN Jane Musa 12/08/17 1023: Subjective Subjective: +flatus, no bm. happy to have ngt out yesterday. ambulating in halls. overall, feeling much better. no n/v. Assessment/Plan Plan: Overall, improved and feeling better. AXR pending this am. may try sips clears if looks ok. continue to ambulate. will stefania Paulson
--- NOTE | 2017-12-08 13:55 | PN- General Surgery ---
Surgical Brief Attending Note Brief Attending Note: Continued slow improvement in sbo/ileus. xray much improved, although not formally read. start clears. slow advance pending tolerance. continue TPN
[2017-12-08 15:01] VITALS: BP 100/68
--- NOTE | 2017-12-08 15:29 | RADIOLOGY REPORT ---
EXAMINATION: XR ABDOMEN MULTIPLE VIEWS CLINICAL INDICATION: Ileus. COMPARISON: CT of the abdomen and pelvis done on 12/05/2017. TECHNIQUE: AP view of the abdomen, total of 3 images. FINDINGS: The oral contrast given at the time of the prior CT study dated 12/05/2017 is now visualized within the large bowel from cecum to the rectum. No abnormal bowel distention is present. IMPRESSION: Oral contrast given at the time of the CT study is now seen within the large bowel from cecum to the rectum.
[2017-12-08 21:57] VITALS: BP 112/70
[2017-12-09 06:16] VITALS: BP 116/70
--- NOTE | 2017-12-09 06:42 | PN- General Surgery ---
See Addendum Subjective Subjective: Patient seen and evaluated. No acute events overnight. Currently denies abdominal pain, N/V, and is tolerating clear liquids that were started yesterday. Endorses flatus, but no BM yet. Overall, pt is doing well, ambulating hallway, tolerating removal of NG tube on sunday, and feels more strong. Discussed that we would order another day of TPN until diet is further advanced. Otherwise, no complaints. Denies cp, sob, n/v/d, numbness/tingling, verdin, palpitations. Objective Vital Signs and I&Os Vital Signs Date Time Temp Pulse Resp B/P B/P Pulse O2 O2 Flow FiO2 Mean Ox Delivery Rate 12/09 0616 98.1 62 20 116/70 97 12/08 2157 98.4 62 20 112/70 96 Room Air 12/08 1501 98.6 67 20 100/68 98 Room Air 12/08 0700 98.6 58 18 105/62 97 Room Air Intake & Output 12/09 0800 12/09 0000 12/08 1600 12/08 0800 12/08 0000 / 1600 Intake Total 1407.0 1534.0 1128.0 423.0 948.0 Output Total 900 700 450 20 Balance 507.0 834.0 678.0 423.0 928.0 Intake, IV 300 320 320 120 320 Intake, Lipid 124.0 70.0 141.6 53.1 128.0 Intake, Oral 400 480 0 Intake, 583 664 666.4 249.9 500 TPN/PPN Number 0 0 Bowel Movements Output, 20 Gastric Drainage Output, Urine 900 700 450 Physical Exam: Physical exam: General: No acute distress. no fever or chills. alert and oriented to time and place Cardio: S1 and S2 heard Lungs: Clear to ascultation bilaterally Abdomen: +BS, belly was soft and nontender to palpation. Surgical sites were clean and free of drainage. Extremities: Calves were soft bilaterally Current Medications: Current Medications Sig/Rivera Start time Last Medication Dose Route Stop Time Status Admin Acetaminophen 1,000 MG Q6P PRN 11/28 0130 AC 12/05 N/A 1 UNIT IV 0029 Benzocaine/Menthol 1 KVNG Q4 HRS NEEDED PRN 12/02 1345 AC 12/07 PO 0940 Fat Emulsion 425 ML Q24H 12/08 1900 AC 12/08 Intravenous IV 12/09 1858 192 Fat Emulsion 425 ML Q24H 12/07 1900 DC 12/07 Intravenous IV 12/08 Heparin Sodium 5,000 UNIT Q8 11/26 2200 12/03 (Porcine) SC 1527 Ketorolac 15 MG Q8P PRN 11/27 0745 12/03 Tromethamine IV 0820 Ondansetron HCl 4 MG Q6P PRN 11/26 2100 12/06 IV 0244 Pantoprazole Sodium 40 MG DAILY 11/29 0015 12/08 IV 0848 Phenol 2 SPRAY Q2P PRN 11/29 0815 12/04 EXT 2019 Potassium Chloride 20 MEQ Q24H 12/06 0845 12/08 Dextrose/Sodium 1,000 ML IV 2359 Chloride Total Parenteral 1 UNIT Q24H 12/08 1900 12/08 Nutrition IV 12/09 1858 192 Total Parenteral 1 UNIT Q24H 12/07 190 DC 12/07 Nutrition IV 12/08 Results Last 48 Hours of Labs: Laboratory Tests 12/09 12/08 0618 0850 Chemistry Sodium (137 - 145 mmol/L) Pending 140 Potassium (3.5 - 5.1 mmol/L) Pending 4.7 Chloride (98 - 107 mmol/L) Pending 100 Carbon Dioxide (22 - 30 mmol/L) Pending 29 Anion Gap (5 - 16) Pending 11 BUN (9 - 20 mg/dL) Pending 16 Creatinine (0.7 - 1.2 mg/dL) Pending 0.7 Estimated GFR (>60 ml/min) > 60 BUN/Creatinine Ratio (7 - 25 %) Pending 22.9 Glucose Pending Phosphorus (2.5 - 4.5 mg/dL) Pending 3.8 Magnesium (1.6 - 2.3 mg/dL) Pending 2.0 Assessment/Plan Assessment/Plan Assessment: Patient is a 51 year old male with a small bowel obstruction and post op day 11 for a lap laura and meckels resection. Plan: - Continue TPN until diet is further advanced. Curretly tolerating clears well. Will discuss with Dr. Paulson diet - Continue ambulation and DVT prophylaxis - Continue pain control plan and nasea meds PRN - Disposition pending diet advancment and bowel function return Core Measures Venous Thromboembolism VTE Risk Factors Age>40 No Mechanical VTE Prophylaxis d/t N/A MechProphylax Ordered No VTE Pharm Prophylaxis d/t NA PharmProphylax ordered
[2017-12-09 22:10] VITALS: BP 110/62
[2017-12-10 06:19] VITALS: BP 110/66
--- NOTE | 2017-12-10 07:22 | PN- General Surgery ---
See Addendum Subjective Subjective: Awake, alert Tolerating full liquid diet, denies any nausea or pain +flatus, no bm Only complaint is right foot pain with ambulating - pt states that he normally wears orthotics and has been ambulating during his hospitalization with only his socks. Has now had his bring his shoes with orthotics but is feeling pain on the plantar surface with ambulation - no pain with rest. Objective Vital Signs and I&Os Vital Signs Date Time Temp Pulse Resp B/P B/P Pulse O2 O2 Flow FiO2 Mean Ox Delivery Rate 12/10 0619 98.4 64 20 110/66 97 12/09 2210 98.2 70 20 110/62 96 Room Air Intake & Output 12/10 0800 12/10 0000 12/09 1600 12/09 0800 12/09 0000 12/08 1600 Intake Total 1248.0 1528.0 1604.0 1188.0 1407.0 1534.0 Output Total 700 650 475 900 700 Balance 548.0 1528.0 954.0 713.0 507.0 834.0 Intake, IV 320 320 320 320 300 320 Intake, Lipid 141.6 141.6 140.0 141.6 124.0 70.0 Intake, Oral 120 400 480 60 400 480 Intake, 666.4 666.4 664 666.4 583 664 TPN/PPN Number 0 0 Bowel Movements Output, Urine 700 650 475 900 700 Patient 165 lb 159 lb Weight Weight Bed scale Bed scale Measurement Method Physical Exam: afebrile, vss General: alert and oriented times three Chest: clear anteriorly bilaterally, RRR Abd: soft, nondistended, nontender, good bs Ext: warm, no edema, no swelling or tenderness to palpation of right foot Wds: look good, no s/s of infection Assessment/Plan Assessment/Plan 51yo male admitted with sbo now pod 12 s/p lap laura/mecnelsons rsxn - has had bm post op but not in three days although passing a lot of flatus and with good bs Advance to LRD wean tpn discussed foot pain - likely plantar fasciitis, recommend ice for now. Antiinflammatories not really recommended as he is post op but may be necessary if symptoms worsen or won't allow for ambulation. Continue to ambulate with orthotics. dc planning Core Measures Venous Thromboembolism VTE Risk Factors Age>40 No Mechanical VTE Prophylaxis d/t N/A MechProphylax Ordered No VTE Pharm Prophylaxis d/t NA PharmProphylax ordered
--- NOTE | 2017-12-10 07:32 | Patient Discharge Instructions ---
Discharge Instructions General Discharge Information You were seen/treated for: Small bowel obstruction, Meckels diverticulum You had these procedures: Lap lysis of adhesions, meckels diverticulectomy Watch for these problems: temp>101, increased redness or drainage of wounds, increased abdominal pain or nausea/vomiting Do not soak the wound: Yes No bath, but you may shower: Yes Other wound care: Keep incisions clean and dry. May shower, no bathing Diet Recommended Diet: Low Residue Activity Activity Self Limited: Yes Pounds, do NOT lift more than: 10 Acute Coronary Syndrome Inclusion Criteria At DC or during hospital stay patient has or had the following: ACS DIAGNOSIS No Discharge Core Measures Meds if any: Prescribed or Continued at Discharge Meds if any: NOT Prescribed or Continued at Discharge Congestive Heart Failure Inclusion Criteria At DC or during hospital stay patient has or had the following: CHF DIAGNOSIS No Discharge Core Measures Meds if any: Prescribed or Continued at Discharge Meds if any: NOT Prescribed or Continued at Discharge Cerebrovascular accident Inclusion Criteria At DC or during hospital stay patient has or had the following: CVA/TIA Diagnosis No Discharge Core Measures Meds if any: Prescribed or Continued at Discharge Meds if any: NOT Prescribed or Continued at Discharge Venous thromboembolism Inclusion Criteria VTE Diagnosis No VTE Type NONE VTE Confirmed by (Test) NONE Discharge Core Measures - Per Current guidelines, there needs to be overlap - treatment for the first 5 days of Warfarin therapy. - If discharged on Warfarin prior to 5 days of - overlap therapy, the patient will need to be - assessed for post discharge needs including - *Post discharge parental anticoagulation - *Warfarin and/or parental anticoagulation education - *Follow up date to check INR post discharge At least 5 days overlap therapy as Inpatient No Meds if any: Prescribed or Continued at Discharge Note: Overlap Therapy is Warfarin and Anticoagulant Meds if any: NOT Prescribed or Continued at Discharge
[2017-12-10 14:21] VITALS: BP 106/70
--- NOTE | 2017-12-11 09:07 | Surgical Discharge Summary ---
Visit Information Visit Dates Admission Date: 11/26/17 Discharge Date: 12/10/17 History of Present Illness Chief Complaint: abdominal pain. 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 Home Who Do You Live With? Patient and family Services at Home: None What is Your Primary Language? Danish Review of Systems: see preop hp Hospital Course Course Attending Physician: Parvez Paulson MD Primary Care Physician: Dawit Walton MD Hospital Course: Patient admitted for medical management of partial intestinal obstruction. there was no improvement, therefore he was taken to the OR for laparoscopy. See OP note for details. There was SBO related to adhesion to Meckels diverticulum with partial ischemia to segment of ileum. It reperfused. Post operatively, there was a protracted ileus, treated by IVF and NG. After 7 days, he was started on TPN. Bowel function slowly returned and his diet was initiated and he was discharged home. Allergies: Coded Allergies: No Known Allergies (05/13/16) Significant Procedures: Laparoscopic lysis adhesions and Meckel's diverticulectomy Disposition Summary Disposition Principal Diagnosis: SBO Additional Diagnosis: Meckels diverticulum Post operative ileus Discharge Disposition: home or self care Discharge Instructions General Discharge Information Code Status: Full Code Patient's Diet: low fiber Patient's Activity: no lifting Follow-Up Instructions/Appts: one week Copies To: Dawit Walton MD
== END 2017-12-10 17:50 | DRG 330 ==
LOC: ERH 18:10 → ERHI 20:49 → 2NB 20:49 → ENRESERV 21:01 → 2NB 22:30 → UNDODEPER 22:38 → ERHI 22:40 → ENTRNSPT 22:45 → 2NB 22:48 → CMPTRNSPT 22:59 → 2NB 23:12 → ENPENDDIS 12-10 17:22 → 2NB 12-10 17:50
PROVIDERS: Nurse Practitioner; Physician Assistant; Physician Assistant Medical; Physician Assistant Surgical
PROC: 0DB84ZZ Excision of Small Intestine, Percutaneous Endoscopic Approach (ICD-10-PCS; principal; 2017-11-28)
PROC: 0DN84ZZ Release Small Intestine, Percutaneous Endoscopic Approach (ICD-10-PCS; principal; 2017-11-28)
PROC: 3E0T3BZ Introduction of Anesthetic Agent into Peripheral Nerves and Plexi, Percutaneous Approach (ICD-10-PCS; 2017-11-28)
PROC: 02HV33Z Insertion of Infusion Device into Superior Vena Cava, Percutaneous Approach (ICD-10-PCS; 2017-12-05)
PROC: 3E0436Z Introduction of Nutritional Substance into Central Vein, Percutaneous Approach (ICD-10-PCS; 2017-12-07)
DX: K56.50 Intestinal adhesions [bands], unspecified as to partial versus complete obstruction (principal); E87.2 Acidosis; M85.80 Other specified disorders of bone density and structure, unspecified site; K56.7 Ileus, unspecified; Q43.0 Meckel's diverticulum (displaced) (hypertrophic)
CPT/HCPCS: 2NBP; 36415; 36592; 71045; 74018; 74021; 74022; 74177; 81001; 82436; 87086; 88304; 96361; 96374; 96375; C1769; J0131; J1644; J1885; J2405; J2765; J3490; J7040; J7042